=== PATIENT | female | born 1985 | race Caucasian/White ===

== ENCOUNTER 2019-11-20 12:51 | Outpatient (CLI) | payer OTHER, SELFPAY ==
--- NOTE | ~2019-11-20 | US_ITS ---
EXAMINATION: US OB <=14 wk fetus w TV DATE: 11/20/2019 13:30 INDICATION: Threatened miscarriage. TECHNIQUE: Real-time transabdominal and transvaginal pelvic ultrasound was performed. COMPARISON: None. FINDINGS: TRANSABDOMINAL ULTRASOUND: The uterus measures 7.8 x 5.6 x 5.6 cm. TRANSVAGINAL ULTRASOUND: There is an intrauterine gestational sac. A yolk sac is identified. The fet al crown rump length measures 9 mm, which correlates with an estimated gestational age of 6 weeks and 6 day(s) (+/-) 4 day(s). heart motion is identified measuring 141 beats per minute (bpm) by M- mode Doppler. There is a small subchorionic hematoma. The right ovary is not visualized. The left ova ry measures 3.0 x 3.0 x 2.4 cm. There is a 2.7 cm cyst in left ovary, likely a corpus luteum cyst. Th ere is no free fluid in the pelvis. IMPRESSION: 1. Single living intrauterine gestation with estimated date of delivery of 07/09/2020. 2. Small subchorionic hematoma. Reviewed, dictated and finalized at location A.
== END 2019-11-20 12:52 | disposition home or self-care (01) ==
LOC: ANHIMG 12:56
PROVIDERS: PCP Nurse Practitioner Family; Visit Provider Obstetrics & Gynecology
DX: O20.0 Threatened abortion (principal); Z3A.00 Weeks of gestation of pregnancy not specified
CPT/HCPCS: 76801; 76817

== ENCOUNTER 2019-11-29 10:00 | Outpatient (CLI) | payer OTHER, SELFPAY ==
--- NOTE | ~2019-11-29 | US_ITS ---
EXAMINATION: US OB <= 14 weeks fetus EXAM DATE: 11/29/2019 10:42 INDICATION: Follow-up subchorionic hemorrhage. Follow up left cyst. First trimester. TECHNIQUE: Pelvic obstetrical transabdominal sonogram was performed by a technologist. There are mu ltiple grayscale and Doppler images available for interpretation. Comparison is made to prior examina tion from 11/20/2019. FINDINGS: Uterus measures 9.8 x 6.9 x 5.2 cm. There is intrauterine gestation sac. pole with heart rate confirmed at 168 beats per minute. The 1.8 cm crown-rump length corresponds to estimated gestational age by ultrasound of 8 weeks 2 days, estimated date of confinement 07/08. Yolk sac is id entified. Small subchorionic hemorrhage identified measuring 7 x 7 x 5 mm. Left ovary morphologica lly normal, right not identified. IMPRESSION: Small subchorionic hemorrhage. Reviewed, dictated and finalized at location A.
== END 2019-11-29 10:01 | disposition home or self-care (01) ==
PROVIDERS: PCP Nurse Practitioner Family; Visit Provider Obstetrics & Gynecology
DX: Z34.90 Encounter for supervision of normal pregnancy, unspecified, unspecified trimester (principal); O36.8911 Maternal care for other specified fetal problems, first trimester, fetus 1
CPT/HCPCS: 76801

== ENCOUNTER 2019-12-18 12:29 | Outpatient (CLI) | payer OTHER, SELFPAY ==
--- NOTE | ~2019-12-18 | US_ITS ---
EXAMINATION: US OB <= 14 weeks fetus DATE: 12/18/2019 12:56 INDICATION: Subchorionic hematoma follow-up during first trimester TECHNIQUE: Real-time pelvic transabdominal and transvaginal ultrasound was performed. COMPARISON: 11/29/2019 FINDINGS: The uterus measures 11.1 x 8.3 x 8.6 cm. There is an intrauterine gestational sac. The pre viously described subchorionic hematoma has increased in size and now measures approximately 3.9 x 4. 5 x 1.2 cm. A yolk sac is identified. heart motion is identified measuring 157 beats per minute (bpm) by M-mode Doppler. The crown rump length measures 3.6 cm , which correlates with an nolan mated gestational age of 10 weeks and 4 day(s) (+/-) 7 day(s). The ovaries are not visualized however no adnexal abnormality is seen. There is no free fluid in the pelvis. IMPRESSION: 1. Interval enlargement of the previously described subchorionic hematoma. 2. Live intrauterine . Reviewed, dictated and finalized at location A.
== END 2019-12-18 12:30 | disposition home or self-care (01) ==
PROVIDERS: PCP Nurse Practitioner Family; Visit Provider Obstetrics & Gynecology
DX: O43.899 Other placental disorders, unspecified trimester (principal); Z3A.00 Weeks of gestation of pregnancy not specified
CPT/HCPCS: 76801

== ENCOUNTER 2020-01-18 12:46 | Outpatient (CLI) | payer OTHER, SELFPAY ==
--- NOTE | ~2020-01-18 | US_ITS ---
EXAMINATION: US OB follow up DATE: 01/18/2020 13:30 INDICATION: Subchorionic hematoma during second trimester TECHNIQUE: Real-time ultrasound of the pelvis was performed utilizing both transabdominal and transva ginal probe.. The interpreting radiologist was not present for the study. COMPARISON: 12/18/2019 and 11/29/2019 FINDINGS: There is a single living fetus in vertex presentation. There is an anterior placenta which appears to extend to the level of the cervical os. Margin of the placenta is however difficult to definitively identify 1. AP and retractions in the lower uterus most prominent along the posterior wall. hea rt rate is 149 beats per minute (bpm). The amniotic fluid index limb is subjectively normal. The following biometric data were obtained: BPD: 3.0 cm -> 15 weeks 4 days Head circumference: 11.8 cm -> 15 weeks 6 days Abdominal circumference: 11.0 cm -> 16 weeks 6 days Femur length: 1.7 cm -> 15 weeks 1 days These measurements are concordant. Head circumference to abdominal circumference ratio: 1.07 (normal range 1.06-1.35). Estimated weight: 141 g (+/-) 21 g. or 5 oz. (+/-) 1 oz. IMPRESSION: 1. Single living fetus in vertex presentation with heart rate of 149 bpm. 2. Suggestion of placenta previa however evaluation of the caudal margins limited by appears to be a contraction at the lower uterine segment. Consider follow-up transvaginal imaging for more definitive determination. Prior subchorionic hematoma appears to have resolved. 3. Estimated weight is 85th percentile by Hadlock criteria when 07/09/2020 is used as the estima sravan date of delivery (JERRY). Please correlate with clinical information or earlier ultrasounds for mos t accurate JERRY. Reviewed, dictated and finalized at location A. IMPRESSION: 1. Single living fetus in vertex presentation with heart rate of 149 bpm. 2. Suggestion of placenta previa however evaluation of the caudal margins limit ed by appears to be a contraction at the lower uterine segment. Consider follow -up transvaginal imaging for more definitive determination. Prior subchorionic hematoma appears to have resolved. 3. Estimated weight is 85th percentile by Hadlock criteria when 07/09/2020 is used as the estimated date of delivery (JERRY). Please correlate with clinica l information or earlier ultrasounds for most accurate JERRY.
== END 2020-01-18 12:47 | disposition home or self-care (01) ==
LOC: ANHIMG 12:50
PROVIDERS: PCP Nurse Practitioner Family; Visit Provider Obstetrics & Gynecology
DX: O41.8X99 Other specified disorders of amniotic fluid and membranes, unspecified trimester, other fetus (principal); Z3A.00 Weeks of gestation of pregnancy not specified
CPT/HCPCS: 76816

== ENCOUNTER 2020-06-18 13:35 | Outpatient (CLI) | payer OTHER, SELFPAY ==
--- NOTE | ~2020-06-18 | US_ITS ---
EXAMINATION: US OB follow up w BPP EXAM DATE: 06/18/2020 14:11 INDICATION: History of delivery of macrosomal . 3rd trimester. TECHNIQUE: Pelvic obstetrical transabdominal sonogram was performed by a technologist. There are mu ltiple grayscale and Doppler images available for interpretation. Comparison is made to prior examina tion from 01/18/2020. FINDINGS: There is a single fetus identified in vertex presentation with a heart rate of 143 beats p er minute. The placenta is located in the anterior position. There is no sonographic evidence of ret roplacental hemorrhage identified. The amniotic fluid index is 15.9 centimeters, which is normal. Niurka cental margin to internal cervical os distance is 6 cm. BIOMETRIC DATA: Biparietal diameter (BPD): 8.6cm ----------------> 34 weeks 5 days. Head circumference (HC): 31.2 cm ----------------> 35 weeks 0 days. Abdominal circumference (AC): 33.3 cm ----------> 37 weeks 1 day. Femur length (FL): 6.8 cm --------------------------> 35 weeks 0 days. These measurements are concordant. HC/AC ratio is 0.94 (The 5th -- 95th percentile range is 0.93-1.11. Estimated weight is 2852 g +/- 428 g. This is the 32nd percentile when the currently reported clinical gestation age 37 weeks 0 days, clinical estimated date of delivery (JERRY-OPE) 07/09/2020 is us ed. estimated gestational age based on measurements from this exam is 35 weeks 3 days, with an estimated date of delivery (JERRY-AUA) 07/20. BIOPHYSICAL PROFILE (performed by the technologist) breathing (30 sec sustained breathing in 30 minutes): 2 out of 2 movement (3 gross body movements in 30 minutes): 2 out of 2 tone (one episode of enspjbw-nugvzyenv-lujjprc limb movement): 2 out of 2 Amniotic fluid pocket (2 cm): 2 out of 2 Total score: 8 out of 8 IMPRESSION: 1. Single fetus in vertex presentation with heart rate 143 beats per minute. 2. Estimated weight of 2852 grams, 32nd percentile using the currently reported clinical gesta tion age of 37 weeks 0 days, JERRY(OPE) 07/09. 3. Normal biophysical profile score 8/8. 4. Normal KAYLYN 16 cm. Reviewed, dictated and finalized at location A. FLARING MACHINE OPERATOR IMPRESSION: 1. Single fetus in vertex presentation with heart rate 143 beats per minute. 2. Estimated weight of 2852 grams, 32nd percentile using the currently r eported clinical gestation age of 37 weeks 0 days, JERRY(OPE) 07/09. 3. Normal biophysical profile score 8/8. 4. Normal KAYLYN 16 cm.
== END 2020-06-18 13:36 ==
PROVIDERS: Visit Provider Obstetrics & Gynecology
DX: Z87.59 Personal history of other complications of pregnancy, childbirth and the puerperium (principal)
CPT/HCPCS: 76816; 76819

== ENCOUNTER 2020-07-01 05:07 | Inpatient (IN) | payer OTHER, SELFPAY ==
--- NOTE | 2020-06-30 07:21 | PM.IMHP ---
H&P: HPI History of Present Illness Date/Time: 07/01/20 07:21 induction of labor Chief complaint: Pre-admit Narrative: Marilu Gilman is a 34 year old female, , presents for ADDY at 39w.For elective induction of labor H/o RPL, MTHFR, abnormal progesterone, delivery of macrosomal infant, anxiety, smoking Review of Systems Review of Systems: All systems reviewed & are unremarkable except as noted in HPI and below Constitutional: Constitutional: Reports no additional constitutional complaints Eyes: Eyes: Reports no additional eye complaints ENT: Reports system reviewed and no additional complaints, except as documented Cardiovascular: Cardiovascular: Reports no additional cardiovascular complaints Respiratory: Respiratory: Reports no additional respiratory complaints Gastrointestinal: Gastrointestinal: Reports no additional gastrointestinal complaints Genitourinary: Genitourinary: Reports no additional female genitourinary complaints Musculoskeletal: Musculoskeletal: Reports no additional musculoskeletal complaints Integumentary/Breasts: Skin/Breast: Reports system reviewed and no additional complaints, except as docu Neurologic: Reports system reviewed and no additional complaints, except as documented Psychiatric: Psychiatric: Reports no additional psychiatric complaints [facility] Past Medical History Medical History Anemia Depression CHARAN (generalized anxiety disorder) History of macrosomia in in prior , currently MTHFR gene mutation Recurrent loss Smoker Surgical History Surgical History (Updated 06/30/20 @ 07:32 by Logan Yoon MD) History of bilateral breast implants 2013 Family History Family History Father Coronary stent patent Mother Coronary stent patent Social History Social History (Updated 06/30/20 @ 07:38 by Logan Yoon MD) Smoking packs per day: 1 Smoking cigarettes per day: 20.0 Years smoked: 12 Smoking pack-years: 12.00 Smoking status: Current every day smoker Alcohol intake: never Substance use: current Substance use type: marijuana Living arrangements: with family Occupation/Education: unemployed Additional occupation/education comments: 2yr college Gender identity (if verbalized by the patient): Female Sexual Orientation (if Verbalized by the Patient): Straight or Heterosexual Spiritual care concerns: No Agree to blood products: Yes Meds Home Medications and Allergies Home Medications Medication Instructions Recorded Confirmed Type aspirin [Aspirin Low Dose] 81 mg PO BID 06/12/20 06/12/20 History cyanocobalamin (vitamin B-12) 1,000 mcg SUBCUT MONTHLY 06/12/20 06/12/20 History famotidine [Pepcid] 20 mg PO BID 06/12/20 06/12/20 History folic acid 4 mg PO DAILY 06/12/20 06/12/20 History linaclotide [Linzess] 145 mcg PO DAILY 06/12/20 06/12/20 History prenat.vits,dennise,hwg-yxcz-sxacd 1 tablet PO DAILY 06/12/20 06/12/20 History [ #2] progesterone micronized 200 mg PO BID 06/12/20 06/12/20 History Allergies Allergy/AdvReac Type Severity Reaction Status Date / Time Penicillins Allergy Severe Anaphylactic Unverified 06/12/20 14:44 Shock Exam Const: General: comfortable and no acute distress HENMT: Head: normal to inspection Ears: hearing grossly normal bilaterally Face and sinus: normal facial exam Eyes: General: appearance normal, both eyes and all related structures Neck: Neck: normal visual inspection and full ROM Thyroid: thyroid normal Lymphatic: no lymphadenopathy noted Chest: Chest palpation & inspection: normal inspection of the chest Breast/axilla inspection: normal inspection of the breasts Resp: Effort & Inspection: normal respiratory effort Auscultation: clear to auscultation bilaterally Cardio: Rate: regular rate Rhythm: regular rhythm GI: GI Palp: Yes Soft to palpation Percussi
--- NOTE | 2020-06-30 07:45 | WPDHPUPDATE1 ---
History and Physical Update Update Date/Time: 07/01/20 07:45 History and Physical has been reviewed, including an updated exam of the patient. There are NO changes in the patient's condition. Risks, benefits, and alternatives have been discussed and questions answered. Patient agrees to proceed with procedure. 34 y/o F, , presents for ADDY at 39weeks for elective induction of lbor with pitocin. H/o RPL, MTHFR, abnormal progesterone, delivery of macrosomal , anxiety, smoking
--- NOTE | 2020-06-30 07:47 | WPDOBADMIT ---
Obstetrics - Admit Note Admission Note: record reviewed. No pertinent additions to the history and/or any subsequent changes in the physical findings that are not consistent with the expected course of the were found. Additions to the history and/or subsequent changes in the physical findings follow. None. 34 y/o F, , presents for ADDY at 39weeks for elective induction of labor with pitocin. H/o RPL, MTHFR, abnormal progesterone, delivery of macrosomal , anxiety, smoking
[2020-07-01] VITALS (143 sets, daily range): BP systolic 96–152; BP diastolic 44–109; PULSE 54–130; RESP 16–18; TEMP 36.4–36.8; O2SAT 78–100; BMI 27.2
--- OUTSIDE RECORDS SUMMARY | 2020-07-01 05:13 | XMS_ITS ---
:1985 Author Care Team Providers Name Role Phone LAURI ROBERTS MD Major Assembly Inspector [phone] Allergies Code Code System Name Reaction Severity Status Onset Penicillins Anaphylaxis Severe Active ? ? Hives Moderate to Active ? Severe Medications Name Status Start Date Stop Date ? ? alprazolam 0.5 mg tablet Completed ? 020 Aspirin Low Dose 81 mg tablet,delayed release Active ? Not available Take 2 tablets every day by oral route. Calcium 600 with Vitamin D3 600 mg (1,500 mg)-400 unit capsule C ompleted ? 03/06/2020 Take 1 capsule twice a day by oral route. Calcium with Vitamin D 600 mg (1,500 mg)-400 unit tablet Active ? Not available Take 1 tablet every day by oral route. clindamycin HCl 300 mg capsule Completed ? 0 03/06/2020 Condoms-Justen Lubricated Active ? Not avai lable Take 1 device by miscell. route. cyanocobalamin (vit B-12) 1,000 mcg/mL injection solution Active ? Not available Inject 1 mL every month by subcutaneous route. Cytotec 100 mcg tablet Completed ? 0 Take 1 tablet 4 times a day by oral route for 5 days. escitalopram 20 mg tablet Completed ? 2019 famotidine 20 mg tablet Active ? Not avai lable folic acid 1 mg tablet Active ? Not avail able Linzess 145 mcg capsule Active ? Not avai lable melatonin 10 mg tablet Completed ? 0 Take 1 tablet every day by oral route. multivitamin tablet Active ? Not availabl e
--- OUTSIDE RECORDS SUMMARY | 2020-07-01 05:13 | XMS_ITS | Encounter Summary ---
:1985 Author Care Team Providers Name Role Phone Logan Yoon MD Rotary Cutter Operator [phone] Reason for Visit ob routine visit Assessment and Plan Assessment Note DEVYN Barnes, PA-S 1. Routine care Routine care at 31w3d . + movement. Denies LOF, contractions, bleeding. Reassuring fundal height and F HT of 154. Following with MFM for serial US, last 05/06/2020 normal KAYLYN, EFW 13%, no e vidence of previa. B12 injection and flu shot at next visit. RTC in 2 weeks. ? urinalysis, dipstick 2. Recurrent miscarriage Serial US. 3. Heterozygous methylenetetrahy drofolate reductase mutation Continue taking aspirin, proge sterone, folic acid, and monthly B12. Last B12 on 04/25. 4. Smoker Down to 5 cigarettes per day. Advised complete cessation. Reassess at next visit. 5. History of delivery of macros omal infant Follow with MFM for serial US. Last 05/06 with EFW 13%. 6. Abnormal glucose tolerance te st Abnormal 1 hour, still needs t o complete 3 hour GTT. 7. Gastroesophageal reflux disea se without esophagitis Continue famotidine as prescri bed. Try banana therapy. Advised to stay away from spicy, acidic, and greasy foods. Do not eat within 2 hours of going to bed. Smoking cessation. Discussion Note: None recorded.Patient educational handouts: No information available. Plan of Care Reminders Provider Appointments on or around
--- OUTSIDE RECORDS SUMMARY | 2020-07-01 05:13 | XMS_ITS | Encounter Summary ---
:1985 Author Care Team Providers Name Role Phone Logan Yoon MD Manager Of Exhibitions And Collections [phone] Reason for Visit ob routine visit Assessment and Plan 1. Routine care ? urinalysis, dipstick 2. Heterozygous methylenetetrahy drofolate reductase mutation MTHFR ? cyanocobalamin (vit B-12) 1,000 mcg/mL injection solution 3. Generalized anxiety disorder ? anxiety disorder: care ins tructions 4. History of delivery of macros omal infant serial US Discussion Note: None recorded. Plan of Care Reminders Provider Appointments on or around Candace Yoon, 15 07/25/2020 Lab Urinalysis, 04/25/2020 In-Of fice Order Dipstick Referral None ? ? recorded. Procedures None ? ? recorded. Surgeries None ? ? recorded. Imaging None ? ? recorded. Medications Name Start Date ? ? Aspirin Low Dose 81 mg tablet,delayed release ? Take 2 tablets every day by oral route. Calcium with Vitamin D 600 mg (1,500 mg)-400 unit tabl et ? Take 1 tablet every day by oral route. Condoms-Justen Lubricated ? Take 1 device by miscell. route. cyanocobalamin (vit B-12) 1,000 mcg/mL injection solut ion ?
--- OUTSIDE RECORDS SUMMARY | 2020-07-01 05:13 | XMS_ITS ---
:1985 Author Care Team Providers Name Role Phone SHERIN MONTE [facility] Primary Care Provider [phone] Allergies Code Code System Name Reaction Severity Status Onset Penicillins Hives Moderate Active ? Medications Name Status Start Date Stop Date ? ? alprazolam 0.5 mg tablet Active ? Not emily ilable 1 tab tid prn escitalopram 20 mg tablet Completed ? 2018 1 tab po daily Prometrium 200 mg capsule Active ? Not av ailable Take 1 capsule twice a day by oral route for 12 days. sertraline 50 mg tablet Active ? Not avai lable TAKE 1 TABLET BY MOUTH DAILY zolpidem 10 mg tablet Active ? Not availa ble 1/2 tab po nightly prn Problems Name Status Onset Date Source ? Anxiety Disorder Active 03/03/2019 ? Procedures Date Name Performed by ? ? Insertion of Bilateral Breast Prostheses Information not available Notes: 2013-February, above muscle and th rough nipple. [place] Results Lab Results None recorded. Past Encounters 03/03/2019 Mixed Anxiety and Depressive Disorder; I nsomnia; Anemia Screening; Diabetes Mellitus Screening; Thyroid Disorder Screening; Hyperlipidemia Screening Sherin Monte INFORMATICS EDUCATOR: [address] [place] [address], Ph. Social History Tobacco Smoking Status Heavy Tobacco Smoker (1 PPD) Vaccine List None recorded. Plan of Care Reminders Provider
--- OUTSIDE RECORDS SUMMARY | 2020-07-01 05:13 | XMS_ITS | Encounter Summary ---
:1985 Author Care Team Providers Name Role Phone Logan Yoon MD Block Operator [phone] Reason for Visit ob routine visit Assessment and Plan 1. Routine care 34 y/o F, , presents fo r ADDY at 35w3d ? bacterial vaginosis + vagi nitis panel, vaginal - Please send copy of results via fax to [facility] at [phone] ? HSV (1+2) DNA, qual, PCR, unspecified specimen - Please send copy of results via fax to [facility] at [phone] ? culture, vaginal/rectal, s treptococcus group B - Please send copy of results via fax to [facility] at [phone] 2. Heterozygous methylenetetrahy drofolate reductase mutation 3. History of delivery of macros omal serial US ? US, obstetric, 3rd trimest er ? US, obstetric, biophysical profile ? non-stress test 4. Recurrent miscarriage 5. Generalized anxiety disorder ? anxiety disorder: care ins tructions 6. Viral syndrome ? COVID-19 RNA (SARS-CoV-2), QL, dredge pump operator-PCR, respiratory specimen Discussion Note: None recorded. Plan of Care Reminders Provider Appointments 15 on or around Logan 07/25/2020 MD Car Lab COVID-19 RNA 06/13/2020 Jerry golden (SARS-CoV-2), QL, Hospital dredge pump operator-PCR, Respiratory
--- OUTSIDE RECORDS SUMMARY | 2020-07-01 05:13 | XMS_ITS | Encounter Summary ---
:1985 Author Care Team Providers Name Role Phone Logan Yoon MD Cd Reactor Operator [phone] Reason for Visit ob routine visit Assessment and Plan 1. Routine care 34 y/o F, , presents fo r ADDY at 38w3d. Induction scheduled for 07/01/20. ? urinalysis, dipstick 2. Family planning surveillance ? multivitamin tablet ? Calcium with Vitamin D 600 mg (1,500 mg)-400 unit tablet ? Slynd 4 mg (28) tablet ? Condoms-Justen Lubricated Discussion Note: None recorded.Patient educational handouts: No information available. Plan of Care Reminders Provider Appointments on or around Ga charlene Yoon, 15 07/25/2020 Lab Urinalysis, 06/27/2020 In-Of fice Order Dipstick Referral None ? [...] route. cyanocobalamin (vit B-12) 1,000 mcg/mL injection win
--- OUTSIDE RECORDS SUMMARY | 2020-07-01 05:13 | XMS_ITS | Encounter Summary ---
:1985 Author Care Team Providers Name Role Phone Logna Yoon MD Walking Dragline Operator [phone] Reason for Visit ob routine visit Assessment and Plan 1. Routine care ? Boostrix Tdap 2.5 Lf unit- 8 mcg-5 Lf/0.5 mL intramuscular syringe ? US, obstetric, 3rd trimest er ? counting your baby's kicks : care instructions ? kick counts ? CBC - In addition to our o ffice, please fax results to [facility] at [phone] ? treponema pallidum screen, serum, reflex confirmation - In addition to our office, please fax results to [facility] at [phone] ? HBsAg (hepatitis B surface Ag), EIA, serum - In addition to our office, please fax results to [facility] at [phone] ? HIV 1+2 AB + HIV 1 p24 Ag, qualitative immunoassay, serum - In addition to our office, please fax results to [facility] at [phone] ? urinalysis, dipstick 2. Heterozygous methylenetetrahy drofolate reductase mutation MTHFR 3. History of delivery of macros omal infant serial US 4. Smoker risk for miscarriage, PIH, FGR 5. Generalized anxiety disorder ? anxiety disorder: care ins tructions 6. Recurrent miscarriage 7. screening ? glucose tolerance test, po st-50G, 1-hour -
--- OUTSIDE RECORDS SUMMARY | 2020-07-01 05:13 | XMS_ITS | Encounter Summary ---
:1985 Author Care Team Providers Name Role Phone Logan Yoon MD Paint Prepper [phone] Reason for Visit ob routine visit CC No itching, burning or discharge, No spotting, cramping, fluid leakage. Pt would like flu vaccine today. Assessment and Plan 1. Routine care Routine care at 33w3d . Denies LOF, contractions, bleeding. + movement. Reassuring fundal height and F HT of 145. Following with MFM for serial US, last 05/06/2020 normal KAYLYN, EFW 13%, no e vidence of previa. She has not scheduled repeat imaging. Orders provided for FGR and advised to scheduled shane. B12 administered and flu vaccine given. RTC in [address] Yoon. ? urinalysis, dipstick 2. growth restriction Last US 05/06 with EFW 13%. MFM for IUGR testing. Discussed with Dr. Yoon. ? US, obstetric, biophysical profile + non-stress test - efw ? US, doppler, middle cerebral artery velocimetry ? US, obstetric, 3rd trimest er - efw 3. Heterozygous methylenetetrahy drofolate reductase mutation Continue taking aspirin, proge sterone, folic acid, and monthly B12. B12 given today. ? cyanocobalamin (vit B-12) 1,000 mcg/mL injection solution 4. Abnormal glucose tolerance te st Abnormal 1 hour, did not compl ete 3 hour GTT. HgbA1c wnl. ? HbA1c (hemoglobin A1c), bl ood 5. Recurrent miscarriage Serial US. 6. Smoker Down to 5 cigarettes per day. Advised complete cessation. Reassess at next visit.
--- OUTSIDE RECORDS SUMMARY | 2020-07-01 05:13 | XMS_ITS | Encounter Summary ---
:1985 Author Care Team Providers Name Role Phone Logan Yoon MD Field Service Analyst [phone] Reason for Visit ob routine visit Assessment and Plan 1. Routine care 34 y/o F, , presents fo r ADDY at 37w3d ? urinalysis, dipstick 2. Heterozygous methylenetetrahy drofolate reductase mutation ? cyanocobalamin (vit B-12) 1,000 mcg/mL injection solution 3. Generalized anxiety disorder ? anxiety disorder: care ins tructions 4. History of delivery of macros omal serial US 5. Recurrent miscarriage Discussion Note: None recorded. Plan of Care Reminders Provider Appointments on or around Candace Yoon, 15 07/25/2020 Lab Urinalysis, 06/20/2020 In-Of fice Order Dipstick Referral None ? [...]
--- OUTSIDE RECORDS SUMMARY | 2020-07-01 05:13 | XMS_ITS | Encounter Summary ---
:1985 Author Care Team Providers Name Role Phone Logan Yoon MD Nutrition Specialist [phone] Reason for Visit ob routine visit Assessment and Plan 1. Routine care 34 y/o F, , presents fo r ADDY at 35w3d ? urinalysis, dipstick ? induction of labor (PROC) 2. Heterozygous methylenetetrahy drofolate reductase mutation 3. Generalized anxiety disorder ? anxiety disorder: care ins tructions 4. Recurrent miscarriage Discussion Note: None recorded. Plan of Care Reminders Provider Appointments on or around Candace Yoon, 15 07/25/2020 Lab Urinalysis, 06/06/2020 In-Of fice Order Dipstick Referral None ? ? recorded. Procedures Induction of 06/06/2020 [facility] Labor (PROC) [facility] Surgeries None ? ? recorded. Imaging None [...] B-12) 1,000 mcg/mL injection solut ion ? Inject 1 mL every month by subcutaneous route.
[2020-07-01 05:42] LABS: Basophils Absolute Auto 0.1 K/mm3 (0.0-0.1); Basophils Percent Auto 0.4 % (0.2-1.2); Eosinophils Absolute Auto 0.2 K/mm3 (0-0.3); Eosinophils Percent Auto 1.3 % (0-4.4); Hemoglobin 12.4 g/dL (12.0-15.0); Immature Granulocyte Absolute 0.08 K/mm3 (0.00-0.031); Immature Granulocyte Percent A 0.6 % (0-0.5); Lymphocytes Absolute Auto 3.34 K/mm3 (0.9-3.2); Lymphocytes Percent Auto 24.1 % (18.3-44.2); Mean Corpuscular HGB Conc 34.4 g/dl (32-36); Mean Corpuscular Hemoglobin 33.1 pg (26-34); Mean Platelet Volume 10.3 fl (7.4-10.4); Monocytes Percent Auto 6.9 % (2.6-8.5); Neutrophils Absolute Auto 9.3 K/mm3 (1.3-6.7); Neutrophils Percent Auto 66.7 % (45.5-73.1); Platelet Count Result 342 k/mm3 (150-375); Red Blood Count 3.75 M/mm3 (4.2-5.4); Red Cell Distribution Width 13.3 % (11.5-14.5); White Blood Count 13.9 K/mm3 (4.5-10.0)
--- NOTE | 2020-07-01 05:43 | LDADM ---
This patient, Marilu Gilman, was admitted to Labor/Delivery/Recovery 106 on 07/01/20 at 05:07. Plans for labor, pain management and were discussed with patient. Patient/family oriented to hospital policies and general routines including ID bracelet, bed and alarms, visiting hours, pain management, procedures, bathroom and other care routines, personal items, smoking policy, room service/diet and guest tray routines, security routines, and visiting hours. Patient/Family are encouraged to report perceived risks to care and to ask questions if they do not understand what they are told or what they should do. See OBIX for further documentation.
[2020-07-01 05:56] LABS: Amphetamine Screen Urine Negative (Negative); Barbiturate Screen Urine Negative (Negative); Benzodiazepines Screen Urine Negative (Negative); Cannabinoid Screen Urine Positive (Negative); Cocaine Screen Urine Negative (Negative); Methadone Screen Urine Negative (Negative); Opiate Screen Urine Negative (Negative); Phencyclidine Screen Urine Negative (Negative)
[2020-07-01] MEDS: LACTATED RINGERS 1,000 ML 125 ML IV CONT ×2 (06:23→19:15)
[2020-07-01] MEDS: OXYTOCIN 30 UNITS/NS 500 ML 30 UNITS/500 ML BAG IV CONT (06:25)
[2020-07-01 07:02] LABS: Rapid Plasma Reagin Non-Reactive (NonReactive)
--- NOTE | 2020-07-01 11:07 | WPDANESEPPF ---
Anes - Initial Pre Proc Eval Procedure: labor epidural Date/Time: 07/01/20 11:07 Surgeon: Logan Yoon MD Pre Op Diagnosis: labor pain Pre Op Diagnosis: Induction of Labor Patient Data Age: 34 Gender: F Height: 1.7 m Weight: 79 kg Last Vital Signs Temp 36.4 C L 07/01/20 11:04 Pulse 64 07/01/20 11:01 Resp 16 07/01/20 11:04 BP 117/80 07/01/20 11:01 Allergies Allergy/AdvReac Type Severity Reaction Status Date / Time Penicillins Allergy Severe Anaphylactic Verified 07/01/20 06:31 Shock Home Medications Medication Instructions Recorded Confirmed Type aspirin [Aspirin Low Dose] 81 mg PO BID 06/12/20 06/12/20 History cyanocobalamin (vitamin B-12) 1,000 mcg SUBCUT MONTHLY 06/12/20 07/01/20 History famotidine [Pepcid] 20 mg PO BID 06/12/20 06/12/20 History folic acid 4 mg PO DAILY 06/12/20 06/12/20 History linaclotide [Linzess] 145 mcg PO DAILY 06/12/20 06/12/20 History prenat.vits,dennise,gwb-etwt-blleh 1 tablet PO DAILY 06/12/20 06/12/20 History [ #2] progesterone micronized 200 mg PO BID 06/12/20 06/12/20 History Laboratory Tests 07/01/20 07/01/20 07/01/20 05:33 05:33 05:33 WBC 13.9 K/mm3 H K/mm3 (4.5-10.0) RBC 3.75 M/mm3 L M/mm3 (4.2-5.4) Hgb 12.4 g/dL g/dL (12.0-15.0) Hct 36.0 % L % (37.0-47.0) MCV 96.0 fl fl (80-100) MCH 33.1 pg pg (26-34) MCHC 34.4 g/dl g/dl (32-36) RDW 13.3 % % (11.5-14.5) Plt Count 342 k/mm3 k/mm3 (150-375) MPV 10.3 fl fl (7.4-10.4) Immature Gran % (Auto) 0.6 % H % (0-0.5) Neut % (Auto) 66.7 % % (45.5-73.1) Lymph % (Auto) 24.1 % % (18.3-44.2) [place] % (Auto) 6.9 % % (2.6-8.5) Eos % (Auto) 1.3 % % (0-4.4) Baso % (Auto) 0.4 % % (0.2-1.2) Lymph # (Auto) 3.34 K/mm3 H K/mm3 (0.9-3.2) [place] # (Auto) 1.0 K/mm3 H K/mm3 (0.1-0.6) Eos # (Auto) 0.2 K/mm3 K/mm3 (0-0.3) Baso # (Auto) 0.1 K/mm3 K/mm3 (0.0-0.1) Abs Immat Gran (auto) 0.08 K/mm3 H K/mm3 (0.00-0.031) Absolute Neuts (auto) 9.3 K/mm3 H K/mm3 (1.3-6.7) Absolute Nucleated RBC 0.0 K/mm3 K/mm3 (0.0-0.012) Nucleated RBC % 0.0 % % (0.0-0.2) Urine Opiates Screen Urine Methadone Screen Ur Barbiturates Screen Ur Phencyclidine Scrn Ur Amphetamine Screen U Benzodiazepines Scrn Urine Cocaine Screen U Cannabinoids Screen RPR Non-reactive (NonReactive) Blood Type O Positive Antibody Screen Negative 07/01/20 05:33 WBC RBC Hgb Hct MCV MCH MCHC RDW Plt Count MPV Immature Gran % (Auto) Neut % (Auto) Lymph % (Auto) [place] % (Auto) Eos % (Auto) Baso % (Auto) Lymph # (Auto) [place] # (Auto) Eos # (Auto) Baso # (Auto) Abs Immat Gran (auto) Absolute Neuts (auto) Absolute Nucleated RBC Nucleated RBC % Urine Opiates Screen Negative (Negative) Urine Methadone Screen Negative (Negative) Ur Barbiturates Screen Negative (Negative) Ur Phencyclidine Scrn Negative (Negative) Ur Amphetamine Screen Negative (Negative) U Benzodiazepines Scrn Negative (Negative) Urine Cocaine Screen Negative (Negative) U Cannabinoids Screen Positive A (Negative) RPR Blood Type Antibody Screen Patient hx anesthesia problems: none Family hx anesthesia problems: none PMFSH Past Medical History Medical History Anemia Depression CHARAN (generalized anxiety disorder) History of macrosomia in in prior , currently MTHFR gene mutation Recurrent loss Smoker Surgical History
--- NOTE | 2020-07-01 14:06 | PM.OBPNLAB ---
Pain Control Date/time seen: 07/01/20 14:06 Pain control: tolerating well Pelvic Exam Dilation (cm): 2 Effacement (%): 50 station: -2 Amniotic membrane status: Intact Contractions Monitor mode: External Contraction frequency: 2 Contraction duration: 50 Contraction pattern: Regular Contraction phase: Contraction Contraction intensity: Moderate Status status: Category l Assessment and Plan Pitocin rate (mU/min): 20 Assessment: induction ongoing Plan: continuous present management
--- NOTE | 2020-07-01 16:57 | PM.OBPNLAB ---
Pain Control Date/time seen: 07/01/20 16:57 Pain control: tolerating well and epidural Pelvic Exam Dilation (cm): 3 Effacement (%): 50 station: -2 Amniotic membrane status: Intact Contractions Monitor mode: External Contraction frequency: 2 Contraction pattern: Regular Contraction phase: Contraction Contraction intensity: Moderate Status status: Category l Assessment and Plan Pitocin rate (mU/min): 20 Assessment: active labor and induction ongoing Plan: continuous present management Comments: epidural
--- NOTE | 2020-07-01 17:22 | PM.OBPNLAB ---
Pain Control Date/time seen: 07/01/20 17:22 Pain control: tolerating well and epidural Pelvic Exam Dilation (cm): 4 Effacement (%): 50 station: -2 Amniotic membrane status: Ruptured (arom clear af) Contractions Monitor mode: External Contraction frequency: 2 Contraction pattern: Regular Contraction phase: Contraction Contraction intensity: Moderate Status status: Category l Assessment and Plan Assessment: active labor and induction ongoing Plan: continuous present management
[2020-07-01] MEDS: OXYTOCIN 30 UNITS/NS 500 ML 30 UNITS/500 ML BAG 125 UNITS IV CONT (19:01)
[2020-07-01] MEDS: CARBOPROST TROMETHAMINE 250 MCG/ML AMPUL IM (19:29)
--- NOTE | 2020-07-01 19:44 | PM.OBPNLAB ---
Pain Control Date/time seen: 07/01/20 18:30 Pain control: tolerating well and epidural Pelvic Exam Dilation (cm): 10 Effacement (%): 100 station: +3 Amniotic membrane status: Ruptured (arom clear af) Contractions Monitor mode: External Contraction frequency: 2 Contraction pattern: Regular Contraction phase: Contraction Contraction intensity: Moderate Status status: Category l Assessment and Plan Assessment: active labor (Completion of stage I) Plan: continuous present management and other (Delivery CHIP)
[2020-07-01] MEDS: LOPERAMIDE HCL 2 MG CAPSULE (19:45)
--- NOTE | 2020-07-01 19:45 | PM.OBPRVD ---
OB - Delivery Note Procedure Delivery date: 07/01/20 Procedure: Normal spontaneous vertex vaginal delivery of viable female infant and placenta events: Labor Induction Intrapartal events: None Induction method: per pitocin protocol Delivery augmentation: rupture of membranes Delivery monitor: external FHT and external uterine Route of delivery: Episiotomy description: None Laceration Description: None Specimen: Yes (Placenta, cord gases, cord blood gases) Estimated blood loss (mL): 250 Anesthesia type: Epidural Disposition: floor Complications: None Baby Date of : 07/01/20 Time of : 18:37 Weeks of gestation at delivery: 39 gender: Female (Minh Sorensen) Weight (pounds): 6 Weight (ounces): 6 presentation: vertex position: Left Occiput Anterior Placenta delivery description: Spontaneous and Normal Configuration cord vessel description: 3 Vessels, Nuchal Cord and Reduced score one minute: 9 score five minutes: 9 Narrative: Normal spontaneous vertex vaginal delivery a viable female infant over an intact perineum normal delivery of anterior shoulder nuchal cord x1 reduced delivered without difficulty placed on maternal abdomen cord clamped and cut nose and throat of the baby were bulb suction there was spontaneous respirations and cry no observed abnormalities of the exam placenta delivery without difficulty uterus contracted well with Pitocin given intravenously. Vagina was examined no cuts tears or lacerations sponge needle and counts correct rectum check normal uterus prolapse cervix at the introitus hemorrhage 1000 cc due to uterine atony uterus evacuated of blood clots ultrasound revealed no retained placenta by bedside and Hemabate 250 micro g given IM with excellent results Baltazar catheter inserted IV fluids given patient tolerated the procedure well in LDR room 106 stable condition
--- NOTE | 2020-07-01 19:52 | PM.OBDSVD ---
DS: Admitting Diagnosis Admitting Diagnosis Admitting Diagnosis: Induction of Labor Term MTHFR mutation Recurrent loss History of macrosomia in previous pregnancies Smoker CHARAN Depression Anemia DS: Discharge Diagnosis Discharge Diagnosis (1) Term delivered: Code(s): O80 - Encounter for full-term uncomplicated delivery Status: Acute (2) hemorrhage: Code(s): O72.1 - Other immediate hemorrhage Status: Acute (3) Elective induction of labor planned: Status: Acute (4) Depression: Code(s): F32.9 - Major depressive disorder, single episode, unspecified Status: Acute (5) History of macrosomia in infant in prior , currently : Code(s): O09.299 - Supervision of with other poor reproductive or obstetric history, unspecified trimester Status: Acute (6) Smoker: Code(s): F17.200 - Nicotine dependence, unspecified, uncomplicated Status: Acute (7) CHARAN (generalized anxiety disorder): Code(s): F41.1 - Generalized anxiety disorder Status: Acute (8) MTHFR gene mutation: Code(s): E72.12 - Methylenetetrahydrofolate reductase deficiency Status: Acute OB - DS: Summary Hospital Course Time spent discussing smoking cessation with patient: 3 to 10 minutes OB Procedures : NST and Ultrasound OB Procedures Intrapartum: Spontaneous Vag Delivery OB Procedures: : Other (Hemabate) Peripartum Data Delivery Method: Natural Vaginal Laceration Description: None Episiotomy description: None complications: uterine atony Wilson 1: Gender: Female ([place] gene) Disposition of : home Status at Discharge Functional status at discharge: independent ambulation Overall status at discharge: patient is back to baseline Time Spent with Patient Time attestation: Total time spent providing and/or coordinating discharge services: Time spent: Less than 30 minutes Exam Const: General: cooperative Nutritional Appearance: average body habitus Orientation/consciousness: patient oriented x3 Limitations: no limitations HENMT: Head: normal to inspection Eyes: General: appearance normal, both eyes and all related structures Neck: Neck: normal visual inspection and full ROM Chest: Chest palpation & inspection: normal inspection of the chest Breast/axilla inspection: normal inspection of the breasts Resp: Effort & Inspection: normal respiratory effort Auscultation: clear to auscultation bilaterally Cardio: Rate: regular rate Rhythm: regular rhythm Heart sounds: S1 normal heart sound present GI: Inspection: normal to inspection Percussion: Yes normal to percussion Auscultation: normal bowel sounds : External Female Exam: normal external appearance Bimanual exam- vagina & uterus: consistency normal, non-tender and other (Uterine prolapse) Back/Spine/Pelvis: Back: no CVA tenderness Skin: General skin exam: normal color and no rashes or lesions noted Neuro: General: patient oriented x3, gait normal, tone normal and moves all extremities Extrem: General: normal to inspection and full ROM Psych: Appearance: grossly normal Mental Status: mental status grossly normal Speech and movement: Normal speech and movement present Affect: normal affect Attitude: cooperative Thought process: Normal thought process present Thought content: Yes Normal thought content present Insight: Good insight present (Psych) Judgement: Good judgement present (Psych) DS: Data Data Completed and Pending Labs on day of discharge: Labs from last 24 hours 07/01/20 07/01/20 07/01/20 05:33 05:33 05:33 WBC RBC Hgb Hct MCV MCH MCHC RDW Plt Count MPV Immature Gran % (Auto) Neut % (Auto) Lymph % (Auto) [place] % (Auto) Eos % (Auto) Baso % (Auto) Lymph # (Auto) [place] # (Auto) Eos # (Aut
[2020-07-01] MEDS: ONDANSETRON INJ 4 MG/2 ML VIAL IV PUSH (20:10)
--- NOTE | 2020-07-01 21:16 | OBPPTRN ---
Patient transferred to post room #281 via wheelchair. Support person present. Oriented to unit, room, information board, rooming in, admission packet and security measures. Patient verbalizes understanding. with patient.
[2020-07-02] MEDS: IBUPROFEN 600 MG TABLET PO ×2 (04:46→12:46)
[2020-07-02 05:26] LABS: Hematocrit 29.1 % (37.0-47.0)
[2020-07-02 07:45] VITALS: BP 107/65; PULSE 66; RESP 16; TEMP 36.9; O2SAT 99
--- NOTE | 2020-07-02 08:51 | PM.OBPNVD ---
OB - PN: Subj Subjective Date/time seen: 07/02/20 08:51 Patient comments: no complaints, pain well controlled, tolerating diet and flatus present Blanket baby status: doing well and bottle feeding well Blanket feeding status: exclusively bottle feeding OB - PN: Obj Data Labs CBC & Chem 7: 07/02/20 04:39 Labs: Laboratory Results - last 24 hr 07/02/20 04:39 Hgb 10.0 L Hct 29.1 L OB - PN A/P Assessment and Plan (1) Term delivered: Code(s): O80 - Encounter for full-term uncomplicated delivery Status: Acute (2) Anemia: Code(s): D64.9 - Anemia, unspecified Status: Acute (3) Status post vaginal delivery: Status: Acute Plan day: 1 Plan: routine care, discharge home (Tonight) and follow up 6 weeks (3 week) Time Spent With Patient Time: Total time spent is greater than 50% in coordination of care (as documented) at patient's floor/unit and/or counseling patient: Time with patient: less than 15 minutes Review of Systems Review of Systems: All systems reviewed & are unremarkable except as noted in HPI and below Exam Const: General: cooperative, healthy appearing, comfortable, no acute distress, alert, awake and Physically active Nutritional Appearance: average body habitus and well nourished Orientation/consciousness: patient oriented x3 Limitations: no limitations HENMT: Head: normal to inspection Ears: hearing grossly normal bilaterally General nose exam: Normal external nose present Face and sinus: normal facial exam Mouth: Yes Normal oral and palatal mucosa present Eyes: General: appearance normal, both eyes and all related structures Neck: Neck: normal visual inspection and full ROM Chest: Chest palpation & inspection: normal inspection of the chest Breast/axilla inspection: normal inspection of the breasts Resp: Effort & Inspection: normal respiratory effort Auscultation: clear to auscultation bilaterally Cardio: Palpation: normal PMI Rate: regular rate Rhythm: regular rhythm GI: Inspection: normal to inspection GI Palp: Yes Soft to palpation Percussion: Yes normal to percussion Auscultation: normal bowel sounds : External Female Exam: normal external appearance Bimanual exam- vagina & uterus: non-tender Back/Spine/Pelvis: Back: no CVA tenderness and back tenderness (EPIDURAL SITE) Skin: General skin exam: normal color and no rashes or lesions noted Neuro: General: patient oriented x3, gait normal, tone normal, moves all extremities, Normal light touch and pain sensation, no meningeal signs, no focal motor deficits and CN's II-XI intact bilaterally Extrem: General: normal to inspection and full ROM Psych: Appearance: grossly normal Mental Status: mental status grossly normal Speech and movement: Normal speech and movement present Affect: normal affect Attitude: cooperative Thought process: Normal thought process present Thought content: Yes Normal thought content present Insight: Good insight present (Psych) Judgement: Good judgement present (Psych)
--- NOTE | 2020-07-02 09:21 | PCCCNOTE ---
Care Coordination. Patient referred to CC for positive UDS for marijuana, but not being tested per RN. Met with pt. and FOB at bedside. Pt. has 2 other children at home about 10 and 13 years old. She reports having all necessary baby care items at home. She plans to breast feed, but will not be using WIC services. She and FOB plan to go home together and she reports her mother lives really close. Her mother is a nurse and will be taking some time off work to help out at home as well. Pt. denies any community resource needs. Spoke with Ramu from [facility] hotline who took patient's situation as information only (Intake ID#[id number]). Pt. and FOB think they may go home later tonight at 24 hours.
--- NOTE | 2020-07-02 11:04 | WPDANLDPN2 ---
Anes-Prog Note L&D Date/Time: 07/02/20 11:04 Comfortable throughout: labor and delivery Neuraxial method: epidural Epidural/Spinal procedure site: clean & non-tender Neuro status: Neuro function grossly intact. Cardiovascular status: normal Respiratory status: normal Airway patency: baseline Mental status: baseline Post-Op hydration status: normal Vital Signs: Last Vital Signs Temp 36.9 C 07/02/20 07:45 Pulse 66 07/02/20 07:45 Resp 16 07/02/20 07:45 BP 107/65 07/02/20 07:45 Pulse Ox 99 07/02/20 07:45 Pain score (VAS): 2 I/O: Intake & Output 07/01/20 07/02/20 07/02/20 23:59 07:59 15:59 Intake Total 500 Output Total 1653 Balance -1153 Post-procedural complaints: none Patient feedback: Patient satisfied with anesthetic care.
[2020-07-03 12:50] VITALS: BP 129/72; PULSE 61; RESP 20; TEMP 37.2; O2SAT 100
== END 2020-07-02 19:30 | disposition home or self-care (01) | DRG 806 ==
LOC: ANHLDR 19:58 → ANHOB2 21:28
PROVIDERS: Admitting Provider Obstetrics & Gynecology; Visit Provider Obstetrics & Gynecology
DX: O99.284 Endocrine, nutritional and metabolic diseases complicating childbirth (principal); E72.12 Methylenetetrahydrofolate reductase deficiency; Z37.0 Single live birth; F17.213 Nicotine dependence, cigarettes, with withdrawal; Z3A.39 39 weeks gestation of pregnancy; O99.324 Drug use complicating childbirth; O72.1 Other immediate postpartum hemorrhage; F12.90 Cannabis use, unspecified, uncomplicated; O99.344 Other mental disorders complicating childbirth; F41.8 Other specified anxiety disorders; O99.334 Smoking (tobacco) complicating childbirth; O69.81X0 Labor and delivery complicated by cord around neck, without compression, not applicable or unspecified; O90.81 Anemia of the puerperium; D64.9 Anemia, unspecified
CPT/HCPCS: 36415; 80307; 85014; 85018; 85025; 86592; 86850; 86900; 86901; 88307; A9270; J2405; J2590; J2795; J7120

== ENCOUNTER 2023-08-02 06:46 | Inpatient (IN) | payer BC, SELFPAY ==
[2023-08-02] VITALS (33 sets, daily range): BP systolic 80–168; BP diastolic 49–117; PULSE 82–148; RESP 13–35; TEMP 36.4–37.7; O2SAT 95–100; BMI 24.0
--- NOTE | ~2023-08-02 | XR_ITS ---
XR abdomen/kub 1V 08/02/2023 17:06 Indication: Nausea with vomiting. Procedure: KUB Comparison: No prior studies for comparison. Findings: Bowel pattern is nonobstructive. No abnormal calcifications. NG tube in the stomach. There is a vascular catheter in the right pelvis. No acute osseous abnormality. Impression: 1: No acute abdominal abnormality. Reviewed, dictated and finalized at location A. FACILITATOR Impression: 1: No acute abdominal abnormality.
[2023-08-02 07:14] LABS: Basophils Absolute Auto 0.1 K/mm3 (0.0-0.1); Basophils Percent Auto 0.9 % (0.2-1.2); Eosinophils Absolute Auto 0.1 K/mm3 (0-0.3); Eosinophils Percent Auto 1.6 % (0-4.4); Hematocrit 38.3 % (37.0-47.0); Hemoglobin 13.1 g/dL (12.0-15.0); Immature Granulocyte Absolute 0.02 K/mm3 (0.00-0.031); Immature Granulocyte Percent A 0.3 % (0-0.5); Lymphocytes Absolute Auto 2.91 K/mm3 (0.9-3.2); Lymphocytes Percent Auto 38.6 % (18.3-44.2); Mean Corpuscular HGB Conc 34.2 g/dl (32-36); Mean Corpuscular Hemoglobin 32.9 pg (26-34); Mean Corpuscular Volume 96.2 fl (80-100); Monocytes Absolute Auto 0.5 K/mm3 (0.1-0.6); Monocytes Percent Auto 6.2 % (2.6-8.5); Neutrophils Percent Auto 52.4 % (45.5-73.1); Platelet Count Result 352 k/mm3 (150-375); Red Blood Count 3.98 M/mm3 (4.2-5.4); Red Cell Distribution Width 11.7 % (11.5-14.5); White Blood Count 7.5 K/mm3 (4.5-10.0)
--- NOTE | 2023-08-02 07:14 | ED.GIBLEED ---
HPI - GI Bleed General Chief complaint: GI Bleed Stated complaint: N/V, abd pain, vomiting blood Time Seen by Provider: 08/02/23 07:12 Source: patient Mode of arrival: ambulatory Limitations: no limitations History of Present Illness HPI Narrative: 37 years old white female came to the emergency room by private car because of vomiting blood started at 1:00 a.m. which is 6 hours prior to arrival associated with blood clots, and nausea. Patient reports of vomiting at least 4 times so far. She denied history of GI bleed. Patient had recent history of dental extraction has been taking ibuprofen 800 mg every 6 hours for the last 5 days. Patient is healthy otherwise does not smoke or drink or use drugs. Patient denies any abdominal pain, diarrhea or black stool Related Data Home Medications Medication Instructions Recorded Confirmed cyanocobalamin (vitamin B-12) 1,000 mcg subcut MONTHLY 06/12/20 07/01/20 1,000 mcg/mL injection solution famotidine 20 mg tablet (Pepcid) 20 mg PO BID 06/12/20 06/12/20 folic acid 1 mg tablet 4 mg PO DAILY 06/12/20 06/12/20 linaclotide 145 mcg capsule 145 mcg PO DAILY 06/12/20 06/12/20 (Linzess) prenat.vits,dennise,rlu-cuun-homuj 1 tablet PO DAILY 06/12/20 06/12/20 Allergies Allergy/AdvReac Type Severity Reaction Status Date / Time Penicillins Allergy Severe Anaphylactic Verified 08/02/23 06:54 Shock Review of Systems Review of Systems: All systems reviewed & are unremarkable except as noted in HPI and below PMFSH Past Medical History Medical History Anemia Depression CHARAN (generalized anxiety disorder) History of macrosomia in infant in prior , currently MTHFR gene mutation Recurrent loss Smoker Surgical History Surgical History (Updated 07/02/20 @ 08:55 by Logan Yoon MD) History of bilateral breast implants 2013 Family History Family History Father Coronary stent patent Mother Coronary stent patent Social History Social History (Updated 06/30/20 @ 07:38 by Logan Yoon MD) Smoking packs per day: 1 Smoking cigarettes per day: 20.0 Years smoked: 12 Smoking pack-years: 12.00 Smoking status: Heavy tobacco smoker Tobacco type: cigarettes Second hand tobacco smoke exposure: Yes Alcohol intake: never Substance use: current Substance use type: marijuana Living arrangements: with family Occupation/Education: unemployed Additional occupation/education comments: 2yr college Gender identity (if verbalized by the patient): Female Sexual Orientation (if Verbalized by the Patient): Straight or Heterosexual Spiritual care concerns: No Agree to blood products: Yes Exam Narrative: General appearance: Well-developed, well-nourished Skin: pale Head: Normocephalic, nontraumatic Eyes: Clear conjunctiva ENT: Oropharynx normal, ears normal, nose normal Neck: Supple, nontender Chest and respiratory: Airway patent, no respiratory distress, no accessory muscle use Heart: Regular rate/rhythm Abdomen: Soft, nontender, no organomegaly, quiet bowel sounds Vascular: Normal peripheral pulses, normal capillary refill. Musculoskeletal: Normal range of motion, nontender back Neurologic: Alert and oriented ?3, [employer] is normal as tested, no gross motor deficit Course Consultations Consultation #1: Dr. Montague Date: 08/02/23 Time: 07:44 Vital Signs Vital signs: Vital Signs Temperature 36.4 C 08/02/23 06:49 Pulse Rate 148 H 08/02/23 06:49 Respiratory Rate 19 08/02/23 06:49 Blood Pressure 122/61 08/02/23 06:49 Pulse Oximetry 98 08/02/23 06:49
[2023-08-02] MEDS: SODIUM CHLORIDE 0.9% IV 1,000 ML 999 ML IV CONT ×2 (07:20→15:20)
[2023-08-02] MEDS: PANTOPRAZOLE SODIUM IV 40 MG VIAL IV PUSH (07:20)
[2023-08-02 07:29] LABS: Alanine Aminotransferase 18 U/L (6-35); Albumin Level 4.2 g/dL (3.5-5.1); Alkaline Phosphatase 45 U/L (38-126); Anion Gap 10 mmol/L (8-16); Aspartate Amino Transferase 22 U/L (14-36); Bilirubin,Total 0.6 mg/dL (0.2-1.3); Blood Urea Nitrogen 28 mg/dL (7-17); Calcium 8.7 mg/dL (8.4-10.2); Carbon Dioxide 24 mmol/L (22-30); Chloride 102 mmol/L (98-107); Estimated CRCL calculation 94 ml/min; Estimated Glomerular Filt Rate > 60; Glucose 132 mg/dL (65-110); Sodium 136 mmol/L (137-145)
[2023-08-02] MEDS: ONDANSETRON INJ 4 MG/2 ML VIAL IV PUSH ×4 (08:44→23:55)
[2023-08-02 08:46] LABS: Hematocrit 31.8 % (37.0-47.0); Hemoglobin 10.6 g/dL (12.0-15.0)
--- NOTE | 2023-08-02 09:52 | ADMGEN ---
This patient, Marilu Gilman, was admitted to Medical Room 240-. Patient/family oriented to hospital policies and general routines including ID bracelet, bed and alarms, visiting hours, pain management, procedures, bathroom and other care routines, personal items, smoking policy, room service/diet, and visiting hours. Information on how to activate the Rapid Response Team has been discussed. Patient/Family are encouraged to report perceived risks to care and to ask questions if they do not understand what they are told or what they should do.
[2023-08-02] MEDS: SODIUM CHLORIDE 0.9% IV 1,000 ML 150 ML IV CONT (10:00)
--- NOTE | 2023-08-02 11:59 | PM.IMHP ---
H&P: HPI History of Present Illness Date/Time: 08/02/23 11:59 Chief Complaint: Patient came to the ER for evaluation after having nausea and vomiting associated with blood clots Narrative: She is a very pleasant 37 years old white female who underwent multiple dental extractions on 07/27/2023 in preparation for dentures placement. She could not tolerate narcotics hence was given ibuprofen as needed for pain which she has been taking on a regular basis. According to the mother, she is not eating much after the surgery and likely taking the the ibuprofen on empty stomach. She started having nausea and vomiting with bleeding associated with blood clots at around 1:00 p.m. She came to the ER for evaluation at around 7:00 a.m., workup was done which confirmed upper GI bleeding. She was dehydrated with heart rate in 140s, which improved with aggressive IV hydration. She is being admitted to the medical floor for close monitoring, GI evaluation for EGD and further workup. Review of Systems Review of Systems: 14 systems were reviewed with pertinent positives and negatives per HPI. Except as documented in the HPI/progress notes, all other systems were reviewed and are negative. All systems reviewed & are unremarkable except as noted in HPI and below PMFSH Past Medical History Medical History Anemia Depression CHARAN (generalized anxiety disorder) History of macrosomia in infant in prior , currently MTHFR gene mutation Recurrent loss Smoker Surgical History Surgical History History of bilateral breast implants 2013 Family History Family History Father Coronary stent patent Mother Coronary stent patent Social History Social History Smoking packs per day: 1 Smoking cigarettes per day: 20.0 Years smoked: 12 Smoking pack-years: 12.00 Smoking status: Heavy tobacco smoker Second hand tobacco smoke exposure: Yes Alcohol intake: never Substance use: current Substance use type: marijuana Do You Feel Safe in your Home?: Yes Lack of Transportation: No Lack of Food: Never True Current Housing: I Have Housing Concerned About Future Housing: No Difficulty Paying Gas/Electric Bills: No Difficulty Paying for Meds: No Currently Unemployed: No Education: Don't Know Difficulty w/ Childcare or Family Care: No Living arrangements: with family Occupation/Education: unemployed Additional occupation/education comments: 2yr college Gender identity (if verbalized by the patient): Female Sexual Orientation (if Verbalized by the Patient): Straight or Heterosexual Spiritual care concerns: No Agree to blood products: Yes Meds Home Medications and Allergies Home Medications Medication Instructions Recorded Confirmed Type ibuprofen 600 mg tablet 600 mg PO Q6H #100 tabs 07/02/20 08/02/23 Rx Allergies Allergy/AdvReac Type Severity Reaction Status Date / Time Penicillins Allergy Severe Anaphylactic Verified 08/02/23 06:54 Shock Vital Signs Vital Signs - 24 hr 08/02/23 06:49 08/02/23 07:00 08/02/23 07:25 Temperature 36.4 C Pulse Rate 148 H 115 H 91 Respiratory Rate 19 16 13 Blood Pressure 122/61 112/86 103/76 Pulse Oximetry 98 98 98 Oxygen Delivery Room Air 08/02/23 07:45 08/02/23 07:54 08/02/23 08:00 Temperature Pulse Rate 99 83 82 Respiratory Rate 16 20 14 Blood Pressure 109/70 Pulse Oximetry 100 99 99 Oxygen Delivery 08/02/23 08:05 08/02/23 10:13 Temperature Pulse Rate 98 Respiratory Rate 17 Blood Pressure 110/70 Pulse Oximetry 100 Oxygen Delivery Room Air Exam Narrative: PHYSICAL EXAMINATION: Vital signs: Please see the chart General physical exam: Patient lying in bed, pleasant and cooperative with the exam, appears to be tired and fati
[2023-08-02] MEDS: DEXTROSE 5%/0.9% SOD CHL 1,000 ML 100 ML IV CONT (12:19)
[2023-08-02] MEDS: traMADol HCL (*CRX) 50 MG TABLET PO (12:19)
--- NOTE | 2023-08-02 13:07 | WPDGICN ---
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 of non-steroidal anti-inflammatories (NSAID) Status: Acute (4) Nausea and vomiting in adult: Code(s): R11.2 - Nausea with vomiting, unspecified Status: Acute Assessment and Plan: egd (5) Orthostasis: Code(s): I95.1 - Orthostatic hypotension Status: Acute Assessment and Plan: fluids transfuse if hgb<7 GI Consult Note Consult date/time: 08/02/23 13:07 Reason for consult: hematemesis HPI: Marilu Gilman is a 37 year old female who has been taking ibuprofen 800mg every 6 hours at least for last week after had dental discomfort, she is here with new onset of emesis with some blots since 1am, also generalized discomfort and lightheaded, she was orthostatic. She was just admitted, on iv fluids, iv protonix. Denies egd or previous gib Review of Systems Constitutional: Constitutional: Reports weakness Eyes: Eyes: Denies blurry vision ENT: Reports Normal hearing present Cardiovascular: Cardiovascular: Denies chest pain Respiratory: Respiratory: Denies cough Gastrointestinal: Gastrointestinal: Reports nausea, Reports vomiting and Reports hematemesis Genitourinary: Genitourinary: Denies hematuria Musculoskeletal: Musculoskeletal: Denies neck pain Integumentary/Breasts: Skin/Breast: Denies rash Neurologic: Denies Abnormal speech present Psychiatric: Psychiatric: Denies confusion [facility] Past Medical History Medical History Anemia Depression CHARAN (generalized anxiety disorder) Hematemesis History of macrosomia in infant in prior , currently MTHFR gene mutation Nausea and vomiting in adult NSAID long-term use Orthostasis Recurrent loss Smoker Surgical History Surgical History History of bilateral breast implants 2013 Family History Family History Father Coronary stent patent Mother Coronary stent patent Social History Social History Smoking packs per day: 1 Smoking cigarettes per day: 20.0 Years smoked: 12 Smoking pack-years: 12.00 Smoking status: Heavy tobacco smoker Second hand tobacco smoke exposure: Yes Alcohol intake: never Substance use: current Substance use type: marijuana Do You Feel Safe in your Home?: Yes Lack of Transportation: No Lack of Food: Never True Current Housing: I Have Housing Concerned About Future Housing: No Difficulty Paying Gas/Electric Bills: No Difficulty Paying for Meds: No Currently Unemployed: No Education: Don't Know Difficulty w/ Childcare or Family Care: No Living arrangements: with family Occupation/Education: unemployed Additional occupation/education comments: 2yr college Gender identity (if verbalized by the patient): Female Sexual Orientation (if Verbalized by the Patient): Straight or Heterosexual Spiritual care concerns: No Agree to blood products: Yes Meds Home Medications and Allergies Home Medications Medication Instructions Recorded Confirmed Type ibuprofen 600 mg tablet 600 mg PO Q6H #100 tabs 07/02/20 08/02/23 Rx Allergies Allergy/AdvReac Type Severity Reaction Status Date / Time Penicillins Allergy Severe Anaph
--- NOTE | 2023-08-02 13:45 | PM.EVENT ---
Event Note Event Note Event Note: Patient started having bloody vomiting and her systolic blood pressure dropped to 80s. GI consulted who advised transfer the patient to the ICU. I spoke with both the supervisor sleeping bag department and the nuclear weapons mechanical specialist. Plan is to transfer the patient to the ICU, monitor closely for hemodynamic stability, transfuse blood/fluid as required by supervisor sleeping bag department. GI recommended erythromycin 150 mg IV x1 dose as well as NG tube and gastric lavage to clear the bleeding site. Kamini Montague plans to take her to the endoscopy suite for an emergent EGD later on today. Further management as per supervisor sleeping bag department/nuclear weapons mechanical specialist in ICU.
[2023-08-02 13:59] LABS: Hematocrit 26.6 % (37.0-47.0); Hemoglobin 8.7 g/dL (12.0-15.0)
--- NOTE | 2023-08-02 14:15 | WPDCNINT ---
Assessment and Plan Assessment and plan (1) Acute upper gastrointestinal bleeding: Code(s): K92.2 - Gastrointestinal hemorrhage, unspecified Status: Acute Assessment and Plan: Patient presented the ED on 08/02 with hematemesis, she had recent dental extraction and was put on ibuprofen 800 mg p.o. q.6 hours. Patient has been taking that regularly for the last 5 days. Presented on 08/02 with multiple episodes of hematemesis. -initially patient was hemodynamically stable with a hemoglobin of 10.0 -on the medical floor patient had large hematemesis of 1500 mL and melena and dropped her hemoglobin to 8.7 and was hypotensive with systolic blood pressures in the 80s and was transferred to the ICU for further management -NG tube was inserted in the ICU, -start patient on Protonix infusion -discussed with Dr. Montague, agree with the plan, will scope patient sometime today -Erythromycin will be given per GI (2) Anemia: Code(s): D64.9 - Anemia, unspecified Status: Acute Assessment and Plan: Patient's hemoglobin dropped to 8.7 will transfuse 2 units of packed RBCs -INR is 1.0 -repeat CBC after the 2 units of packed RBCs -H and H q.6 hours has been ordered (3) Hypotension: Code(s): I95.9 - Hypotension, unspecified Status: Acute Assessment and Plan: Hypotension likely related to anemia, -will give IV fluid bolus and transfuse packed RBCs -right femoral central line was inserted, patient was started on Levophed for blood pressures are low Plan DVT prophylaxis: SCDs Stress ulcer prophylaxis: Protonix infusion Nutrition: NPO Code Status: Full code Critical Care Time Spent: 51 minutes Discussed with patient's mother was a nurse and significant other and updated them with patient's condition and plan of care. They are aware that patient has a GI bleed likely related to ibuprofen, packed RBCs are being transfused, central line was inserted and may require Levophed. I answered all questions Due to a high probability of clinically significant, life threatening deterioration, the patient required my highest level of preparedness to intervene emergently and I personally spent this critical care time directly and personally managing the patient. This critical care time included obtaining a history; examining the patient; pulse oximetry; ordering and review of studies; arranging urgent treatment with development of a management plan; evaluation of patient's response to treatment; frequent reassessment; and discussions with other providers. It was exclusive of separately billable procedures and treating other patients and teaching time. Please see Assessment and Plan section and the rest of the note for further information on patient assessment and treatment This dictation may have been done utilizing a voice recognition system. Attempts have been made to correct errors. However, there may be uncorrected grammatical, spelling, and recognitions errors present. [employer] Consult Note Consult date: 08/02/23 Reason for consult: Hematemesis, GI bleed, anemia, melena HPI: Marilu Gilman is a 37 year old female with past medical history of anemia, depression, and anxiety disorder presented the ED on 08/02/2023 with chief complaint of hematemesis associated blood clots. According the ER reports patient started having hematemesis at 1:00 a.m. on 08/02/2023 and arrived to the ER 6 hours after episode. During that time she reported 4 episodes of hematemesis. Denies any previous history of GI bleed. Patient had recent history of dental extraction and taking ibuprofen 800 mg every 6 hours the last 5 days. According to the records mother of the patient stated that she was eating very little after a dental extraction and was taking ibuprofen and the stomach. Patient received 1 L of IV fluid bolus in the ER, patient was hemodynamically stable and was transferred to medical floor. Around around 1:30 p.m. on
--- NOTE | 2023-08-02 15:10 | WPDPROCEDUR ---
Procedures Central Line Placement Right Femoral: Central Line Date: 08/02/23 Central Line Time: 15:10 Discussed w/ the patient/family/POA,the placement of a central venous catheter, including its clinical necessity/indication & associated potential risks, benifits and alternatives.: Yes The patient/family/POA understand(s) and acknowledge(s) the need to proceed with central venous catheter insertion as an important element of the patient's clinical management.: Yes Consent: I have discussed with the patient and/or surrogate, the non-emergent placement of a central venous catheter, including its clinical necessity/indication and associated potential risks and complications. The patient and/or surrogate understand(s) and acknowledge(s) the need to proceed with central venous catheter insertion as an important element of the patient's clinical management. Time Out Performed: Yes Patient Position: supine Patient placed on monitor/pulse ox: Yes Provider Prep: sterile gown, sterile gloves, Max. sterile barrier precautions, cap and hand hygiene with conventional soap/water or alcohol based hand rub Central line prep: 2% Chlorhexidine scrub Local anesthesia used: lidocaine 1% Amount of anesthesia used (ml): 4 Sterile US Technique with sterile gel/sterile probe covers: Yes Central line lumen inserted: triple Liber[place]: 12 Length (cm): 16 Depth of Insertion (cm): 16 Post Procedure: sutured in place, good blood return, all ports aspirated, flushed, capped, transparent dressing, hemostatic product, antimicrobial product, securement product and aseptic technique maintained throughout procedure Patient tolerated procedure: well Complications: none Additional comments: Patient tolerated the procedure well
[2023-08-02] MEDS: LORazepam INJ (*CRX) 2 MG/ML VIAL (15:21)
[2023-08-02] MEDS: PANTOPRAZOLE SODIUM IV 80 MG in SODIUM CHLORIDE 0.9% IV 500 ML 50 MG IV CONT ×2 (15:21→23:55)
[2023-08-02] MEDS: SODIUM CHLORIDE 0.9% IV 250 ML 30 ML IV CONT (15:21)
[2023-08-02] MEDS: NOREPINEPHRINE 8 MG/D5W 250 ML 8 MG/250 ML BAG 9.38 MG IV CONT (15:22)
[2023-08-02] MEDS: ERYTHROMYCIN LACTOBIONATE INJ 250 MG in SODIUM CHLORIDE 0.9% IV 100 ML 200 MG IVPB (15:50)
--- NOTE | 2023-08-02 17:20 | WPDANESEPP ---
Anes - Eval Pre Procedure Procedure: egd Date/Time: 08/02/23 17:20 Surgeon: crispin Preop Diagnosis: gi bleeding Pre Op Diagnosis: Upper GI Bleed Patient Data Age: 37 Gender: F Height: 1.7 m Weight: 69.6 kg Last Vital Signs Temp 36.9 C 08/02/23 17:07 Pulse 113 H 08/02/23 17:07 Resp 18 08/02/23 17:07 BP 111/86 08/02/23 17:07 Pulse Ox 100 08/02/23 17:07 O2 Del Method Room Air 08/02/23 10:13 Allergies Allergy/AdvReac Type Severity Reaction Status Date / Time Penicillins Allergy Severe Anaphylactic Verified 08/02/23 06:54 Shock Home Medications Medication Instructions Recorded Confirmed Type ibuprofen 600 mg tablet 600 mg PO Q6H #100 tabs 07/02/20 08/02/23 Rx Laboratory Tests 08/02/23 08/02/23 08/02/23 07:07 07:08 08:41 WBC 7.5 K/mm3 (4.5-10.0) RBC 3.98 L M/mm3 (4.2-5.4) Hgb 13.1 D g/dL 10.6 L g/dL (12.0-15.0) (12.0-15.0) Hct 38.3 % 31.8 L % (37.0-47.0) (37.0-47.0) MCV 96.2 fl (80-100) MCH 32.9 pg (26-34) MCHC 34.2 g/dl (32-36) RDW 11.7 % (11.5-14.5) Plt Count 352 k/mm3 (150-375) MPV 10.0 fl (7.4-10.4) Immature Gran % (Auto) 0.3 % (0-0.5) Neut % (Auto) 52.4 % (45.5-73.1) Lymph % (Auto) 38.6 % (18.3-44.2) [place] % (Auto) 6.2 % (2.6-8.5) Eos % (Auto) 1.6 % (0-4.4) Baso % (Auto) 0.9 % (0.2-1.2) Lymph # (Auto) 2.91 K/mm3 (0.9-3.2) [place] # (Auto) 0.5 K/mm3 (0.1-0.6) Eos # (Auto) 0.1 K/mm3 (0-0.3) Baso # (Auto) 0.1 K/mm3 (0.0-0.1) Abs Immat Gran (auto) 0.02 K/mm3 (0.00-0.031) Absolute Neuts (auto) 4.0 K/mm3 (1.3-6.7) Absolute Nucleated RBC 0.0 K/mm3 (0.0-0.012) Nucleated RBC % 0.0 % (0.0-0.2) PT 14.0 Seconds (11.1-14.7) INR 1.0 APTT 25.0 SECONDS (22.3-36.8) Sodium 136 L mmol/L (137-145) Potassium 4.0 mmol/L (3.4-5.0) Chloride 102 mmol/L (98-107) Carbon Dioxide 24 mmol/L (22-30) Anion Gap 10 mmol/L (8-16) BUN 28 H mg/dL (7-17) Creatinine 0.70 mg/dL (0.7-1.0) Estim Creat Clear Calc 94 ml/min Estimated GFR > 60 (59 - ) Glucose 132 H mg/dL (65-110) Calcium 8.7 mg/dL (8.4-10.2) Total Bilirubin 0.6 mg/dL (0.2-1.3) AST 22 U/L (14-36) ALT 18 U/L (6-35) Alkaline Phosphatase 45 U/L (38-126) Total Protein 7.0 g/dL (6.3-8.2) Albumin 4.2 g/dL (3.5-5.1) Blood Type O Positive Antibody Screen Negative Crossmatch See Detail 08/02/23 13:41 WBC RBC Hgb 8.7 L g/dL (12.0-15.0) Hct 26.6 L % (37.0-47.0) MCV MCH MCHC RDW Plt Count MPV Immature Gran % (Auto) Neut % (Auto) Lymph % (Auto) [place] % (Auto) Eos % (Auto) Baso % (Auto) Lymph # (Auto) [place] # (Auto) Eos # (Auto) Baso # (Auto) Abs Immat Gran (auto) Absolute Neuts (auto) Absolute Nucleated RBC Nucleated RBC % PT INR APTT Sodium Potassium Chloride Carbon Dioxide Anion Gap BUN Creatinine Estim Creat Clear Calc Estimated GFR Glucose Calcium Total Bilirubin AST ALT Alkaline Phosphatase Total Protein Albumin Blood Type Antibody Screen Crossmatch Patient hx anesthesia problems: none Family hx anesthesia problems: none Results Review: All pre-operative results and documents have been reviewed as part of the pre-operative evaluation. PMFSH Past Medical History Medical History (Upda
--- NOTE | 2023-08-02 17:22 | PC.NURSE ---
1400-Called to room [address] King and myself at bedside. Decision was made to transfer to ICU. Taken to ICU 7 per bed. Patient and family oriented to policies and call light. Will continue to monitor.
--- NOTE | 2023-08-02 17:51 | WPDANESEPPF ---
Anes - Initial Pre Proc Eval Procedure: Operation Date: 08/02/23 17:35 Proposed Procedures p Esophagogastroduodenoscopy - Lee Broussard MD Date/Time: 08/02/23 17:51 Surgeon: Bright Ortiz MD Pre Op Diagnosis: Upper GI Bleed Patient Data Age: 37 Gender: F Height: 1.7 m Weight: 69.6 kg Last Vital Signs Temp 36.9 C 08/02/23 17:07 Pulse 113 H 08/02/23 17:07 Resp 18 08/02/23 17:07 BP 111/86 08/02/23 17:07 Pulse Ox 100 08/02/23 17:07 O2 Del Method Room Air 08/02/23 10:13 Allergies Allergy/AdvReac Type Severity Reaction Status Date / Time Penicillins Allergy Severe Anaphylactic Verified 08/02/23 06:54 Shock Home Medications Medication Instructions Recorded Confirmed Type ibuprofen 600 mg tablet 600 mg PO Q6H #100 tabs 07/02/20 08/02/23 Rx Laboratory Tests 08/02/23 08/02/23 08/02/23 07:07 07:08 08:41 WBC 7.5 K/mm3 (4.5-10.0) RBC 3.98 L M/mm3 (4.2-5.4) Hgb 13.1 D g/dL 10.6 L g/dL (12.0-15.0) (12.0-15.0) Hct 38.3 % 31.8 L % (37.0-47.0) (37.0-47.0) MCV 96.2 fl (80-100) MCH 32.9 pg (26-34) MCHC 34.2 g/dl (32-36) RDW 11.7 % (11.5-14.5) Plt Count 352 k/mm3 (150-375) MPV 10.0 fl (7.4-10.4) Immature Gran % (Auto) 0.3 % (0-0.5) Neut % (Auto) 52.4 % (45.5-73.1) Lymph % (Auto) 38.6 % (18.3-44.2) [place] % (Auto) 6.2 % (2.6-8.5) Eos % (Auto) 1.6 % (0-4.4) Baso % (Auto) 0.9 % (0.2-1.2) Lymph # (Auto) 2.91 K/mm3 (0.9-3.2) [place] # (Auto) 0.5 K/mm3 (0.1-0.6) Eos # (Auto) 0.1 K/mm3 (0-0.3) Baso # (Auto) 0.1 K/mm3 (0.0-0.1) Abs Immat Gran (auto) 0.02 K/mm3 (0.00-0.031) Absolute Neuts (auto) 4.0 K/mm3 (1.3-6.7) Absolute Nucleated RBC 0.0 K/mm3 (0.0-0.012) Nucleated RBC % 0.0 % (0.0-0.2) PT 14.0 Seconds (11.1-14.7) INR 1.0 APTT 25.0 SECONDS (22.3-36.8) Sodium 136 L mmol/L (137-145) Potassium 4.0 mmol/L (3.4-5.0) Chloride 102 mmol/L (98-107) Carbon Dioxide 24 mmol/L (22-30) Anion Gap 10 mmol/L (8-16) BUN 28 H mg/dL (7-17) Creatinine 0.70 mg/dL (0.7-1.0) Estim Creat Clear Calc 94 ml/min Estimated GFR > 60 (59 - ) Glucose 132 H mg/dL (65-110) Calcium 8.7 mg/dL (8.4-10.2) Total Bilirubin 0.6 mg/dL (0.2-1.3) AST 22 U/L (14-36) ALT 18 U/L (6-35) Alkaline Phosphatase 45 U/L (38-126) Total Protein 7.0 g/dL (6.3-8.2) Albumin 4.2 g/dL (3.5-5.1) Blood Type O Positive Antibody Screen Negative Crossmatch See Detail 08/02/23 13:41 WBC RBC Hgb 8.7 L g/dL (12.0-15.0) Hct 26.6 L % (37.0-47.0) MCV MCH MCHC RDW Plt Count MPV Immature Gran % (Auto) Neut % (Auto) Lymph % (Auto) [place] % (Auto) Eos % (Auto) Baso % (Auto) Lymph # (Auto) [place] # (Auto) Eos # (Auto) Baso # (Auto) Abs Immat Gran (auto) Absolute Neuts (auto) Absolute Nucleated RBC Nucleated RBC % PT INR APTT Sodium Potassium Chloride Carbon Dioxide Anion Gap BUN Creatinine Estim Creat Clear Calc Estimated GFR Glucose Calcium Total Bilirubin AST ALT Alkaline Phosphatase Total Protein Albumin Blood Type Antibody Screen Crossmatch Patient hx anesthesia problems: none Family hx anesthesia problems: none Results Review: All pre-operative results and documents have been reviewe
[2023-08-02] MEDS: EPINEPHrine INJ 1 MG/10 ML SYRINGE (18:13)
[2023-08-02] MEDS: CENTRAL LINE FLUSH 10 ML IV PUSH (21:56)
[2023-08-02] MEDS: LORazepam INJ (*CRX) 2 MG/ML VIAL 0.5 MG IV PUSH (21:56)
[2023-08-02 22:01] LABS: Hematocrit 29.8 % (37.0-47.0); Hemoglobin 10.2 g/dL (12.0-15.0)
[2023-08-02] MEDS: METOCLOPRAMIDE HCL INJ 10 MG/2 ML VIAL 5 MG IV PUSH (23:55)
[2023-08-03] VITALS (13 sets, daily range): BP systolic 98–119; BP diastolic 50–72; PULSE 85–117; RESP 16–24; TEMP 36.2–37.3; O2SAT 96–100
[2023-08-03] MEDS: ONDANSETRON INJ 4 MG/2 ML VIAL IV PUSH ×6 (04:09→23:27)
[2023-08-03 04:26] LABS: Basophils Percent Auto 0.4 % (0.2-1.2); Eosinophils Percent Auto 0.5 % (0-4.4); Hematocrit 27.4 % (37.0-47.0); Hemoglobin 9.4 g/dL (12.0-15.0); Immature Granulocyte Absolute 0.02 K/mm3 (0.00-0.031); Immature Granulocyte Percent A 0.2 % (0-0.5); Lymphocytes Absolute Auto 2.66 K/mm3 (0.9-3.2); Mean Corpuscular HGB Conc 34.3 g/dl (32-36); Mean Corpuscular Hemoglobin 32.3 pg (26-34); Mean Corpuscular Volume 94.2 fl (80-100); Mean Platelet Volume 9.9 fl (7.4-10.4); Monocytes Absolute Auto 0.6 K/mm3 (0.1-0.6); Monocytes Percent Auto 6.7 % (2.6-8.5); Neutrophils Percent Auto 60.2 % (45.5-73.1); Platelet Count Result 183 k/mm3 (150-375); Red Blood Count 2.91 M/mm3 (4.2-5.4); White Blood Count 8.3 K/mm3 (4.5-10.0)
[2023-08-03 04:36] LABS: INR 1.2; Prothrombin Time 15.8 Seconds (11.1-14.7)
[2023-08-03 04:37] LABS: Partial Thromboplastin Time 30.6 SECONDS (22.3-36.8)
[2023-08-03 05:01] LABS: Anion Gap 5 mmol/L (8-16); Blood Urea Nitrogen 21 mg/dL (7-17); Calcium 7.3 mg/dL (8.4-10.2); Carbon Dioxide 22 mmol/L (22-30); Chloride 113 mmol/L (98-107); Estimated CRCL calculation 74 ml/min; Estimated Glomerular Filt Rate > 60; Glucose 95 mg/dL (65-110); Phosphorus 2.4 mg/dL (2.5-4.5); Sodium 140 mmol/L (137-145)
[2023-08-03] MEDS: METOCLOPRAMIDE HCL INJ 10 MG/2 ML VIAL 5 MG IV PUSH ×4 (06:08→23:27)
[2023-08-03] MEDS: CENTRAL LINE FLUSH 10 ML IV PUSH ×3 (06:42→20:33)
[2023-08-03] MEDS: KCL 40 MEQ/WATER 100 ML 100 ML 25 ML IVPB (08:39)
[2023-08-03] MEDS: PANTOPRAZOLE SODIUM IV 40 MG VIAL IV PUSH ×2 (09:48→20:33)
[2023-08-03 10:02] LABS: Hematocrit 25.7 % (37.0-47.0); Hemoglobin 8.6 g/dL (12.0-15.0)
--- NOTE | 2023-08-03 11:08 | WPDINTPN ---
Progress Note: A&P Assessment and Plan (1) Acute upper gastrointestinal bleeding: Code(s): K92.2 - Gastrointestinal hemorrhage, unspecified Status: Acute Assessment and Plan: Patient presented the ED on 08/02 with hematemesis, she had recent dental extraction and was put on ibuprofen 800 mg p.o. q.6 hours. Patient has been taking that regularly for the last 5 days. Presented on 08/02 with multiple episodes of hematemesis. -initially patient was hemodynamically stable with a hemoglobin of 10.0 -on the medical floor patient had large hematemesis of 1500 mL and melena and dropped her hemoglobin to 8.7 and was hypotensive with systolic blood pressures in the 80s and was transferred to the ICU for further management -NG tube was inserted in the ICU, -start patient on Protonix infusion -Erythromycin will be given per GI -08/02: EGD: Single ulcer ranging in size from 10 mm to 15 mm was visualized in the antrum he also had associated bleeding. Status post heater probe, epi different injection, 1 resolution clip to control the bleeding successfully Hemoglobin stable this morning, patient of Levophed, hemodynamically stable, feels much better this morning (2) Anemia: Code(s): D64.9 - Anemia, unspecified Status: Acute Assessment and Plan: Patient's hemoglobin dropped to 8.7 status post 2 units of packed RBCs on 08/02 -INR is 1.0 -H&H remained stable (3) Hypotension: Code(s): I95.9 - Hypotension, unspecified Status: Acute Assessment and Plan: Hypotension likely related to anemia, -will give IV fluid bolus and transfuse packed RBCs -right femoral central line was inserted, patient was started on Levophed for blood pressures are low 08/03: Off Levophed since yesterday after EGD. -hemodynamically stable Plan DVT prophylaxis: SCDs, hold prophylaxis due to GI bleeding Stress ulcer prophylaxis: Will switch Protonix infusion Protonix IV q.12 hours Nutrition: Clear liquid diet Code Status: Full code Critical Care Time Spent: 31 minutes Patient may transfer out of the ICU, if okay with hospitalist Discussed with patient's mother was a nurse and significant other and updated them with patient's condition and plan of care Due to a high probability of clinically significant, life threatening deterioration, the patient required my highest level of preparedness to intervene emergently and I personally spent this critical care time directly and personally managing the patient. This critical care time included obtaining a history; examining the patient; pulse oximetry; ordering and review of studies; arranging urgent treatment with development of a management plan; evaluation of patient's response to treatment; frequent reassessment; and discussions with other providers. It was exclusive of separately billable procedures and treating other patients and teaching time. Please see Assessment and Plan section and the rest of the note for further information on patient assessment and treatment This dictation may have been done utilizing a voice recognition system. Attempts have been made to correct errors. However, there may be uncorrected grammatical, spelling, and recognitions errors present. Subjective Date/time seen: 08/03/23 11:08 Interval history: Reason for consult: Hematemesis, GI bleed, anemia, melena 08/02: EGD: Single ulcer ranging in size from 10 mm to 15 mm was visualized in the antrum he also had associated bleeding. Status post heater probe, epi different injection, 1 resolution clip to control the bleeding successfully 08/03/2023: Patient seen and examined in the ICU, is awake, alert, oriented, denies any nausea, vomiting. States he feels better. Hemodynamically stable, off Levophed. Remains on Protonix infusion this morning. Hemoglobin was 9.4, WBC count of 8.3 and platelets of 183. Potassium is 3.0, creatinine is normal. Patient had good urine output, is afebrile Rev
--- NOTE | 2023-08-03 15:19 | WPDGIPROGNO ---
Progress Note: A&P Assessment and Plan (1) Gastric ulcer due to nonsteroidal antiinflammatory drug (NSAID) therapy: Code(s): K25.9 - Gastric ulcer, unspecified as acute or chronic, without hemorrhage or perforation; T39.395A - Adverse effect of other nonsteroidal anti-inflammatory drugs [NSAID], initial encounter Status: Acute Assessment and Plan: egd yesterday found active bleeding with successful treatment protonix twice daily off levophed with better BP ok to advance diet she knows that should not use more nsaid's consider EGD in 4 months to reassess (2) Hypotension: Code(s): I95.9 - Hypotension, unspecified Status: Acute Assessment and Plan: resolved, from active UGIB (3) Acute blood loss anemia: Code(s): D62 - Acute posthemorrhagic anemia Status: Acute Assessment and Plan: from upper gib monitor for more signs of bleeding yesterday required blood transfusion, fluids and pressors (4) Hematemesis: Code(s): K92.0 - Hematemesis Status: Acute Assessment and Plan: resolved (5) NSAID long-term use: Code(s): Z79.1 - [facility] (current) use of non-steroidal anti-inflammatories (NSAID) Status: Acute (6) Nausea and vomiting in adult: Code(s): R11.2 - Nausea with vomiting, unspecified Status: Acute Assessment and Plan: resolved Subjective Date/time seen: 08/03/23 15:19 Interval history: urgent EGD last evening, found active bleeding from ulcer- treated and controlled with gold probe, epi and clip no more bleeding this morning, she is feeling better she is going to move to regular floor Review of Systems Review of Systems: All systems reviewed & are unremarkable except as noted in HPI and below Exam Const: General: comfortable and no acute distress HENMT: Face/Nose/Sinus: Normal nares present Eyes: General: appearance normal, both eyes and all related structures Neck: Neck: supple Resp: Auscultation: clear to auscultation bilaterally Cardio: Rhythm: regular rhythm Other: mildly tachy GI: Inspection: non-distended GI Palp: Yes Soft to palpation and No Tenderness to palpation present (GI) Auscultation: normal bowel sounds Skin: Other: mild pallor Neuro: Speech: normal speech Motor exam (neuro): 5/5 motor strength present throughout Extrem: General: normal to inspection Psych: Mental Status: mental status grossly normal Objective Data Vital Signs Vital Signs: Vital Signs - 24 hr 08/02/23 15:22 08/02/23 16:04 08/02/23 16:00 Temperature 98.4 F Pulse Rate 133 H 127 H 113 H Respiratory Rate 16 Blood Pressure 81/49 L 108/81 Pulse Oximetry 100 Oxygen Delivery Oxygen Flow Rate 08/02/23 16:00 08/02/23 16:45 08/02/23 16:50 Temperature 98.4 F 98.4 F 98.6 F Pulse Rate 113 H 112 H 107 H Respiratory Rate 18 15 15 Blood Pressure 111/84 101/79 117/86 Pulse Oximetry 100 100 100 Oxygen Delivery Oxygen Flow Rate 08/02/23 17:07 08/02/23 18:01 08/02/23 18:06 Temperature 98.5 F Pulse Rate 113 H 118 H 133 H Respiratory Rate 18 19 20 Blood Pressure 111/86 126/91 H 162/98 H Pulse Oximetry 100 100 100 Oxygen Delivery Bag Valve Mask Bag Valve Mask Oxygen Flow Rate 10 10 08/02/23 18:11 08/02/23 18:00 08/02/23 18:07 Temperature 98.6 F Pulse Rate 133 H 109 H 109 H Respiratory Rate 20 17 Blood Pressure 124/103 H 126/81 Pulse Oximetry 100 100 Oxygen Delivery Bag Valve Mask Oxygen Flow Rate 10 08/02/23 18:49 08/02/23 18:16 08/02/23 18:21 Temperature Pulse Rate 109 H 103 H 120 H Respiratory Rate 17 28 H Blood Pressure 125/109 H 168/117 H 118/88 Pulse Oximetry 100 100 Oxygen Delivery Bag Valve Mask Bag Valve Mask Oxygen Flow Rate 10 10 08/02/23 18:26 08/02/23 18:31 08/02/23 19:19 Temperature 98.8 F Pulse Rate 117 H 122 H 100 Respiratory Rate 35 H 26 H 15 Blood Pressure 122/75 125/88 128/63 Pulse Oximetry 98 98 99 O
[2023-08-03] MEDS: traMADol HCL (*CRX) 50 MG TABLET PO ×2 (16:42→23:26)
--- NOTE | 2023-08-03 19:14 | WPDANESPN ---
Anes - Prog Note Post-Op Date/Time: 08/03/23 19:14 Vital Signs: Last Vital Signs Temp 36.2 C L 08/03/23 17:05 Pulse 88 08/03/23 17:05 Resp 16 08/03/23 17:05 BP 108/54 L 08/03/23 17:05 Pulse Ox 100 08/03/23 17:05 O2 Del Method Room Air 08/03/23 12:00 O2 Flow Rate 2 08/02/23 20:00 Pain Score (VAS): 0 I/O: Intake & Output 08/03/23 08/03/23 08/03/23 07:59 15:59 23:59 Intake Total 240 Output Total 400 275 Balance -400 -275 240 Laboratory Tests 08/03/23 09:54 08/03/23 04:44 08/02/23 08/02/23 08/03/23 07:07 21:55 04:14 WBC 8.3 RBC 2.91 L Hgb 10.2 L 9.4 L Hct 29.8 L 27.4 L MCV 94.2 MCH 32.3 MCHC 34.3 RDW 14.0 Plt Count 183 MPV 9.9 Immature Gran % (Auto) 0.2 Neut % (Auto) 60.2 Lymph % (Auto) 32.0 [place] % (Auto) 6.7 Eos % (Auto) 0.5 Baso % (Auto) 0.4 Lymph # (Auto) 2.66 [place] # (Auto) 0.6 Eos # (Auto) 0.0 Baso # (Auto) 0.0 Abs Immat Gran (auto) 0.02 Absolute Neuts (auto) 5.0 Absolute Nucleated RBC 0.0 Nucleated RBC % 0.0 PT 15.8 H INR 1.2 APTT 30.6 Sodium Potassium Chloride Carbon Dioxide Anion Gap BUN Creatinine Estim Creat Clear Calc Estimated GFR Glucose Calcium Phosphorus Magnesium Crossmatch See Detail 08/03/23 08/03/23 04:44 09:54 WBC RBC Hgb 8.6 L Hct 25.7 L MCV MCH MCHC RDW Plt Count MPV Immature Gran % (Auto) Neut % (Auto) Lymph % (Auto) [place] % (Auto) Eos % (Auto) Baso % (Auto) Lymph # (Auto) [place] # (Auto) Eos # (Auto) Baso # (Auto) Abs Immat Gran (auto) Absolute Neuts (auto) Absolute Nucleated RBC Nucleated RBC % PT INR APTT Sodium 140 Potassium 3.0 L Chloride 113 H Carbon Dioxide 22 Anion Gap 5 L BUN 21 H Creatinine 0.90 Estim Creat Clear Calc 74 Estimated GFR > 60 Glucose 95 Calcium 7.3 L Phosphorus 2.4 L Magnesium 2.0 Crossmatch Patient Feedback: Patient satisfied with anesthetic care.
[2023-08-04] VITALS: PULSE 87
[2023-08-04 03:52] VITALS: BP 118/59; PULSE 94; RESP 17; TEMP 36.6; O2SAT 99
[2023-08-04 04:00] VITALS: PULSE 81
[2023-08-04] MEDS: METOCLOPRAMIDE HCL INJ 10 MG/2 ML VIAL 5 MG IV PUSH (05:04)
[2023-08-04] MEDS: ONDANSETRON INJ 4 MG/2 ML VIAL IV PUSH ×2 (05:04→08:38)
[2023-08-04] MEDS: traMADol HCL (*CRX) 50 MG TABLET PO ×2 (05:04→13:03)
[2023-08-04] MEDS: CENTRAL LINE FLUSH 10 ML IV PUSH (05:05)
[2023-08-04 06:47] LABS: Basophils Absolute Auto 0.1 K/mm3 (0.0-0.1); Basophils Percent Auto 0.9 % (0.2-1.2); Eosinophils Absolute Auto 0.3 K/mm3 (0-0.3); Eosinophils Percent Auto 4.5 % (0-4.4); Hematocrit 25.6 % (37.0-47.0); Hemoglobin 8.7 g/dL (12.0-15.0); Immature Granulocyte Absolute 0.01 K/mm3 (0.00-0.031); Immature Granulocyte Percent A 0.2 % (0-0.5); Lymphocytes Absolute Auto 2.28 K/mm3 (0.9-3.2); Lymphocytes Percent Auto 41.1 % (18.3-44.2); Mean Platelet Volume 9.9 fl (7.4-10.4); Monocytes Absolute Auto 0.4 K/mm3 (0.1-0.6); Monocytes Percent Auto 6.8 % (2.6-8.5); Neutrophils Absolute Auto 2.6 K/mm3 (1.3-6.7); Neutrophils Percent Auto 46.5 % (45.5-73.1); Platelet Count Result 175 k/mm3 (150-375); Red Blood Count 2.64 M/mm3 (4.2-5.4); Red Cell Distribution Width 14.2 % (11.5-14.5); White Blood Count 5.6 K/mm3 (4.5-10.0)
--- NOTE | 2023-08-04 06:53 | WPDGIPROGNO ---
Progress Note: A&P Assessment and Plan (1) Acute blood loss anemia: Code(s): D62 - Acute posthemorrhagic anemia Status: Acute Assessment and Plan: Hemoglobin was 8.6 yesterday. Today's is pending. (2) Gastric ulcer due to nonsteroidal antiinflammatory drug (NSAID) therapy: Code(s): K25.9 - Gastric ulcer, unspecified as acute or chronic, without hemorrhage or perforation; T39.395A - Adverse effect of other nonsteroidal anti-inflammatory drugs [NSAID], initial encounter Status: Acute Assessment and Plan: The ulcer was actively bleeding when endoscopy performed. Dr. Montague successfully stopped the bleeding with injection of epinephrine, heater probe and clips. She understands that she needs to avoid NSAIDs. Follow-up EGD will be done in 6-8 weeks. Would send her home on PPI b.i.d.. Subjective Date/time seen: 08/04/23 06:53 denies abdominal pain or nausea. She has not had any further evidence of bleeding. No bowel movements during the night. She would like to try eating regular food and hopeful of going home today. Exam Const: General: cooperative and healthy appearing Orientation/consciousness: patient oriented x3 HENMT: Head: normal to inspection Ears: hearing grossly normal bilaterally Mouth: Yes Normal oral and palatal mucosa present Eyes: General: appearance normal, both eyes and all related structures Neck: Neck: normal visual inspection Chest: Chest palpation & inspection: normal inspection of the chest Resp: Effort & Inspection: normal respiratory effort Auscultation: clear to auscultation bilaterally Cardio: Rate: regular rate Rhythm: regular rhythm GI: Inspection: normal to inspection GI Palp: Yes No hepatosplenomegaly present Auscultation: normal bowel sounds Skin: General skin exam: normal color and no jaundice Neuro: General: patient oriented x3 Speech: normal speech Objective Data Vital Signs Vital Signs: Vital Signs - 24 hr 08/03/23 08:00 08/03/23 10:00 08/03/23 08:00 Temperature 36.6 C Pulse Rate 92 95 94 Respiratory Rate 19 Blood Pressure 101/72 Pulse Oximetry 98 Oxygen Delivery 08/03/23 10:00 08/03/23 12:05 08/03/23 14:05 Temperature 37.1 C 36.8 C Pulse Rate 95 98 91 Respiratory Rate 19 16 18 Blood Pressure 118/65 110/50 L 101/59 L Pulse Oximetry 100 98 100 Oxygen Delivery 08/03/23 12:00 08/03/23 17:05 08/03/23 16:00 Temperature 36.2 C L Pulse Rate 88 85 Respiratory Rate 16 Blood Pressure 108/54 L Pulse Oximetry 100 Oxygen Delivery Room Air 08/03/23 19:45 08/03/23 20:00 08/03/23 20:00 Temperature 36.6 C Pulse Rate 86 97 86 Respiratory Rate 17 17 Blood Pressure 110/54 L Pulse Oximetry 99 99 Oxygen Delivery Room Air 08/03/23 23:38 08/04/23 00:00 08/04/23 03:52 Temperature 36.8 C 36.6 C Pulse Rate 94 87 94 Respiratory Rate 17 17 Blood Pressure 119/64 118/59 L Pulse Oximetry 99 99 Oxygen Delivery 08/04/23 04:00 Temperature Pulse Rate 81 Respiratory Rate Blood Pressure Pulse Oximetry Oxygen Delivery Intake/Output Intake/Output: Intake & Output 08/01/23 08/02/23 08/03/23 08/04/23 23:59 23:59 23:59 23:59 Intake Total 2192 240 100 Output Total 2230 1175 Balance -38 -935 100 Meds/Results Medications: Active Medications Generic Name Dose Route Start Last Admin Trade Name Freq PRN Reason Stop Dose Admin Al Hydrox/Mg Hydrox/Simethicone 30 ml 08/02/23 12:11 Mag Hydrox/Al Hydrox/Simeth 30 Ml Udc PO QID PRN Dyspepsia Lorazepam 0.5 mg 08/02/23 22:14 Lorazepam Inj (*Crx) 2 Mg/Ml Vial IV PUSH Q4H PRN Anxiety Metoclopramide HCl 5 mg 08/02/23 18:00 08/04/23 05:04 Metoclopramide Hcl Inj 10 Mg/2 Ml Vial IV PUSH 5 mg Q6HR COURTNEY Administration Ondansetron HCl 4 mg 08/02/23 08:10 08/04/23 05:04 Ondansetron Inj 4 Mg/2 Ml Vial IV PUSH 4 mg Q4H COURTNEY Administration Pantoprazole Sodium 40
[2023-08-04 07:05] LABS: Anion Gap 3 mmol/L (8-16); Blood Urea Nitrogen 10 mg/dL (7-17); Calcium 7.6 mg/dL (8.4-10.2); Carbon Dioxide 25 mmol/L (22-30); Chloride 110 mmol/L (98-107); Estimated CRCL calculation 94 ml/min; Estimated Glomerular Filt Rate > 60; Glucose 103 mg/dL (65-110); Potassium 3.4 mmol/L (3.4-5.0); Sodium 138 mmol/L (137-145)
[2023-08-04 08:00] VITALS: BP 97/57; PULSE 79; PULSE 80; RESP 18; TEMP 36.9; O2SAT 100
[2023-08-04] MEDS: PANTOPRAZOLE SODIUM IV 40 MG VIAL IV PUSH (08:38)
[2023-08-04] MEDS: POTASSIUM CHLORIDE 20 MEQ ER TABLET 40 MEQ PO (08:38)
[2023-08-04 14:00] VITALS: BP 116/59; PULSE 81; RESP 18; TEMP 36.8; O2SAT 99
--- NOTE | 2023-08-04 14:38 | PM.DS ---
DS: Admitting Diagnosis Discharge Date 08/04/2023: Admitting Diagnosis Acute upper GI bleeding Anemia DS: Discharge Diagnosis Discharge Diagnosis (1) Acute blood loss anemia: Code(s): D62 - Acute posthemorrhagic anemia Status: Acute (2) Gastric ulcer due to nonsteroidal antiinflammatory drug (NSAID) therapy: Code(s): K25.9 - Gastric ulcer, unspecified as acute or chronic, without hemorrhage or perforation; T39.395A - Adverse effect of other nonsteroidal anti-inflammatory drugs [NSAID], initial encounter Status: Acute (3) Hypotension: Code(s): I95.9 - Hypotension, unspecified Status: Acute (4) Tobacco abuse counseling: Code(s): Z71.6 - Tobacco abuse counseling Status: Acute (5) Nicotine dependence, cigarettes, with other nicotine-induced disorders: Code(s): F17.218 - Nicotine dependence, cigarettes, with other nicotine-induced disorders Status: Acute (6) Anemia: Code(s): D64.9 - Anemia, unspecified Status: Acute (7) Depression: Code(s): F32.9 - Major depressive disorder, single episode, unspecified Status: Acute (8) CHARAN (generalized anxiety disorder): Code(s): F41.1 - Generalized anxiety disorder Status: Acute (9) 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 Workup was done which showed GI bleeding. Hospital Course: H&P: HPI History of Present Illness Date/Time: 08/02/23? 11:59 Chief Complaint: Patient came to the ER for evaluation after having nausea and vomiting associated with blood clots Narrative: She is a very pleasant 37 years old white female who underwent multiple dental extractions on 07/27/2023 in preparation for dentures placement.? She could not tolerate narcotics hence was given ibuprofen as needed for pain which she has been taking on a regular basis.? According to the mother, she is not eating much after the surgery and likely taking the the ibuprofen on empty stomach.? She started having nausea and vomiting with bleeding associated with blood clots at around 1:00 p.m.? She came to the ER for evaluation at around 7:00 a.m., workup was done which confirmed upper GI bleeding.? She was dehydrated with heart rate in 140s, which improved with aggressive IV hydration.? She is being admitted to the medical floor for close monitoring, GI evaluation for EGD and further workup. HOSPITAL COURSE ... Date of Admission - 08/03/2023: (1) Acute upper gastrointestinal bleeding: ?Code(s): K92.2 - Gastrointestinal hemorrhage, unspecified ?Status:?Acute ?Assessment and Plan: Patient presented the ED on 08/02 with hematemesis, she had recent dental extraction and was put on ibuprofen 800 mg p.o. q.6 hours.? Patient has been taking that regularly for the last 5 days.? Presented on 08/02 with multiple episodes of hematemesis. -initially patient was hemodynamically stable with a hemoglobin of 10.0 -on the medical floor patient had large hematemesis of 1500 mL and melena and dropped her hemoglobin to 8.7 and was hypotensive with systolic blood pressures in the 80s and was transferred to the ICU for further management -NG tube was inserted in the ICU, -start patient on Protonix infusion -Erythromycin will be given per GI -08/02:? EGD:? Single ulcer ranging in size from 10 mm to 15 mm was visualized in the antrum he also had associated bleeding.? Status post heater probe, epi different injection, 1 resolution clip to control the bleeding successfully Hemoglobin stable this morning, patient of Levophed, hemodynamically stable, feels much better this morning (2) Anemia: ?Code(s): D64.9 - Anemia, unspecified ?Status:?Acute ?Assessment and Plan: Patient's hemoglobin dropped to 8.7 status post 2 units of packed RBCs on
== END 2023-08-04 17:53 | disposition home or self-care (01) | DRG 378 ==
LOC: ANHED 08:14 → ANH2MED 08:19 → ANHICU 14:11 → ANH2MED 08-03 12:01
PROVIDERS: Internal Medicine; Internal Medicine Gastroenterology; Student in an Organized Health Care Education/Training Program; Admitting Provider Internal Medicine; Emergency Provider Emergency Medicine; Visit Provider Family Medicine
PROC: 0DJ08ZZ Inspection of Upper Intestinal Tract, Via Natural or Artificial Opening Endoscopic (ICD-10-PCS; CPT 43235; principal; 2023-08-02 17:35)
DX: K25.4 Chronic or unspecified gastric ulcer with hemorrhage (principal); D62 Acute posthemorrhagic anemia; E72.12 Methylenetetrahydrofolate reductase deficiency; T39.395A Adverse effect of other nonsteroidal anti-inflammatory drugs [NSAID], initial encounter; F17.210 Nicotine dependence, cigarettes, uncomplicated; E86.0 Dehydration; F32.9 Major depressive disorder, single episode, unspecified; F41.1 Generalized anxiety disorder; I95.1 Orthostatic hypotension; I95.89 Other hypotension; Z98.82 Breast implant status
CPT/HCPCS: 36415; 36430; 74018; 80048; 80053; 81025; 83735; 84100; 85014; 85018; 85025; 85610; 85730; 86850; 86900; 86901; 86923; 96361; 96375; 99285; A9270; C1751; C9113; G0378; J0171; J0330; J1364; J2060; J2371; J2405; J2704; J2765; J3480; J7030; J7040; J7042; J7050; P9016

== ENCOUNTER 2023-12-01 11:05 | Emergency (ER) | payer BC, SELFPAY ==
[2023-12-01 11:16] VITALS: BP 132/88; PULSE 92; RESP 16; TEMP 37; O2SAT 100
--- NOTE | 2023-12-01 12:53 | ED.GENADULT ---
HPI - General Adult General Chief complaint: Skin/Abscess/Foreign Body Stated complaint: Rash on Back,pain Source: patient Mode of arrival: ambulatory Limitations: no limitations History of Present Illness HPI narrative: Patient presents for evaluation of pruritic and painful rash to the right side of her back and chest. She noted symptoms to her back four days ago and symptoms to her chest today. She feels like there is pins and needles in the area. No new lotions, soaps, detergents or topical products. No one else with whom she has been in contact has had similar symptoms. She did have chickenpox in the past. Related Data Home Medications Medication Instructions Recorded Confirmed docusate sodium 100 mg capsule 100 mg PO DAILY 12/01/23 12/01/23 (Stool Softener) ferrous sulfate 325 mg (65 mg 325 mg PO DAILY 12/01/23 12/01/23 iron) tablet (FeroSul) sertraline 50 mg tablet 50 mg PO DAILY 12/01/23 12/01/23 Allergies Allergy/AdvReac Type Severity Reaction Status Date / Time Penicillins Allergy Severe Anaphylactic Verified 12/01/23 11:15 Shock Review of Systems Review of Systems: CONSTITUTIONAL: Denies fever, chills, or sweats. EYES: Denies visual changes, redness, or discharge. ENT: Denies rhinorrhea, congestion, sore throat, or otalgia. CARDIOVASCULAR: Denies chest pain, palpitations, or edema. RESPIRATORY: Denies cough or dyspnea. GASTROINTESTINAL: Denies abdominal pain, nausea, vomiting, or diarrhea. GENITOURINARY: Denies dysuria or hematuria. SKIN: Reports painful and pruritic rash to the right side of her chest and back. MUSCULOSKELETAL: Denies back pain, joint pain, or myalgia. NEUROLOGIC: Denies headache, numbness, dizziness, or weakness. PSYCHIATRIC: Denies anxiety or depression. [facility] Past Medical History Medical History Acute blood loss anemia Anemia Depression CHARAN (generalized anxiety disorder) Gastric ulcer due to nonsteroidal antiinflammatory drug (NSAID) therapy Hematemesis History of macrosomia in infant in prior , currently MTHFR gene mutation Nausea and vomiting in adult Nicotine dependence, cigarettes, with other nicotine-induced disorders NSAID long-term use Orthostasis Recurrent loss Smoker Tobacco abuse counseling Surgical History Surgical History History of bilateral breast implants 2013 Family History Family History Father Coronary stent patent Mother Coronary stent patent Social History Social History Smoking packs per day: 1 Smoking cigarettes per day: 20.0 Years smoked: 12 Smoking pack-years: 12.00 Smoking status: Heavy tobacco smoker Second hand tobacco smoke exposure: Yes Alcohol intake: never Substance use: current Substance use type: marijuana Do You Feel Safe in your Home?: Yes Lack of Transportation: No Lack of Food: Never True Current Housing: I Have Housing Concerned About Future Housing: No Difficulty Paying Gas/Electric Bills: No Difficulty Paying for Meds: No Currently Unemployed: No Education: Don't Know Difficulty w/ Childcare or Family Care: No Living arrangements: with family Occupation/Education: unemployed Additional occupation/education comments: 2yr college Gender identity (if verbalized by the patient): Female Sexual Orientation (if Verbalized by the Patient): Straight or Heterosexual Spiritual care concerns: No Agree to blood products: Yes Exam Narrative: GENERAL: Well-appearing, well-nourished, and in no acute distress. HEAD: Normocephalic, atraumatic. EYES: PERRLA and EOMI. ENT: Nares clear, no rhinorrhea or epistaxis. Mucous membranes moist. Oropharynx without tonsillar hypertrophy exudate or other lesio
== END 2023-12-01 12:57 | disposition home or self-care (01) ==
PROVIDERS: Emergency Provider Nurse Practitioner; PCP Family Medicine
DX: B00.9 Herpesviral infection, unspecified (principal); F17.210 Nicotine dependence, cigarettes, uncomplicated; E72.12 Methylenetetrahydrofolate reductase deficiency; D64.9 Anemia, unspecified; F32.A Depression, unspecified; F41.1 Generalized anxiety disorder
CPT/HCPCS: 87255; 99213; G0463

== ENCOUNTER 2025-05-18 12:25 | Emergency (ER) | payer OTHER, SELFPAY ==
--- NOTE | ~2025-05-18 | XR_ITS ---
EXAMINATION: XR knee RT min 4V, 05/18/2025 12:43 CDT HISTORY: RT knee pain, twisted knee in a hole 1x week ago COMPARISON: No comparisons available. Findings: No acute fracture or malalignment. No significant degenerative changes. Soft tissues unremarkable. Impression: No acute fracture or malalignment. Reviewed, dictated and finalized at location P. Impression: No acute fracture or malalignment.
[2025-05-18 12:40] VITALS: BP 134/85; PULSE 86; RESP 20; TEMP 36.9; O2SAT 100
--- NOTE | 2025-05-18 12:44 | ED.LOWEXIN ---
HPI - Extremity Injury (Lower) General Chief Complaint: Extremity Injury, Lower Stated Complaint: right knee injury Time Seen by Provider: 05/18/25 12:50 Source: patient, RN notes reviewed and old records reviewed Mode of arrival: ambulatory Limitations: no limitations History of Present Illness HPI Narrative: 39 year old female who presents to [facility] with complaints of 1 week ago she was walking and stepped into a hole and twisted her right knee. Patient recently had complete dental extractions preparing for dentures and is presently taking [place] and Clindaycin for that procedure. Patient reports pain to the medial aspect of her right knee with some residual swelling noted and limping gait. Patient does have full mobility of her knee but with discomfort. MD complaint: knee injury Onset (ago): week(s) (1) Type of Injury: other (twisted knee) Place: street/outdoors Severity scale (1-10): 3 Treatments prior to arrival: cold therapy and other (pain medication and Tylenol) Related Data Home Medications ?Medication ?Instructions ?Recorded ?Confirmed ?Last Taken ?Type sertraline 50 mg tablet 50 mg PO DAILY 12/01/23 12/01/23 Unknown History clindamycin HCl 300 mg capsule mg 05/18/25 Unknown History hydrocodone 5 mg-acetaminophen 325 tablet 05/18/25 Unknown History mg tablet Allergies Allergy/AdvReac Type Severity Reaction Status Date / Time Penicillins Allergy Severe Anaphylactic Verified 05/18/25 12:58 Shock ibuprofen AdvReac Mild stomach Verified 05/18/25 12:58 ulcers Review of Systems Review of Systems: CONSTITUTIONAL: Denies fever, chills, or sweats. EYES: Denies visual changes, redness, or discharge. ENT: Denies rhinorrhea, congestion, sore throat, or otalgia. CARDIOVASCULAR: Denies chest pain, palpitations, or edema. RESPIRATORY: Denies cough or dyspnea. GASTROINTESTINAL: Denies abdominal pain, nausea, vomiting, or diarrhea. GENITOURINARY: Denies dysuria or hematuria. SKIN: Denies rash or itching. MUSCULOSKELETAL: Denies back pain,positive for right knee pain and swelling , or myalgia. NEUROLOGIC: Denies headache, numbness, or weakness. PSYCHIATRIC: reports history anxiety or depression. All systems reviewed & are unremarkable except as noted in HPI and below PMFSH Past Medical History Medical History Acute blood loss anemia Gastric ulcer due to nonsteroidal antiinflammatory drug (NSAID) therapy Tobacco abuse counseling Nicotine dependence, cigarettes, with other nicotine-induced disorders Orthostasis Nausea and vomiting in adult NSAID long-term use Hematemesis Anemia Depression History of macrosomia in in prior , currently Smoker CHARAN (generalized anxiety disorder) Recurrent loss MTHFR gene mutation Surgical History Surgical History History of dental surgery extraction of all teeth History of bilateral breast implants 2013 Family History Family History Father Coronary stent patent Mother Coronary stent patent Social History Social History Smoking packs per day: 1 Smoking cigarettes per day: 20.0 Years smoked: 12 Smoking pack-years: 12.00 Smoking status: Heavy tobacco smoker Second hand tobacco smoke exposure: Yes Alcohol intake: never Substance use: current Substance use type: marijuana Do You Feel Safe in your Home?: Yes Lack of Transportation: No Lack of Food: Never True Current Housing: I Have Housing Concerned About Future Housing: No Difficulty Paying Gas/Electric Bills: No Difficulty Paying for Meds: No Currently Unemployed: No Education: Don't Know Difficulty w/ Childcare or Family Care: No Living arrangements: with family Occupation/Education: unemployed Additional occupation/education comments: 2yr college Gender identity (if verbalized by the patient): Female Sexual Orientation (if Verbalized by the Patient): Straight or Heterosexual Spiritual care concerns: No Agree to blood products: Yes Comments At time of signature, agree with nursing past medical, surgical, social and family history. There is no relevant family history pertinent to the presenting complaint Exam Narrative: GENERAL: Well-appearing, well-nourished, and in no acute distress. HEAD: Normocephalic, atraumatic. EYES: PERRLA and EOMI. ENT: Nares clear, no rhinorrhea or epistaxis. Mucous membranes moist.TM's normal throat pink without swelling recent dental surgery to remove teeth edentulous NECK: Supple.no lymphadenopathy CHEST: Clear to auscultation. No respiratory distress.SAO2 100% on room air HEART: Regular rate and rhythm. No murmur heard. Normal peripheral pulses. ABDOMEN: Soft, nontender, nondistended, normal active bowel sounds. EXTREMITIES: Normal range of motion. No edema.Exception noted to right knee with pain to medial aspect of knee and some swelling,, full mobility but with some discomfort, sensation and circulation intact to right leg and foot. SKIN: Warm, dry, no rash. NEURO: No focal deficits. Alert and oriented x3. Course Course Emergency Course: Patient is aware of diagnosis, understands and agrees to treatment plan.? Anticipatory guidance given.? Patient agrees to follow-up as directed and is aware of reasons to seek care at the emergency department. Portions of this record may have been created with voice recognition software Level of Care: Express Care Visit Vital Signs Vital signs: Vital Signs Temperature 36.9 C 05/18/25 12:40 Pulse Rate 86 05/18/25 12:40 Respiratory Rate 20 05/18/25 12:40 Blood Pressure 134/85 05/18/25 12:40 Pulse Oximetry 100 05/18/25 12:40 Oxygen Delivery Room Air 05/18/25 12:40 Temperature 36.9 C 05/18/25 12:40 Pulse Rate 86 05/18/25 12:40 Respiratory Rate 20 05/18/25 12:40 Blood Pressure 134/85 05/18/25 12:40 Pulse Oximetry 100 05/18/25 12:40 Oxygen Delivery Room Air 05/18/25 12:40 Reviewed MDM - Extremity Injury (Lower) Differential Diagnosis Differential diagnosis: Likely acute internal derangement of knee and other (acute strain of right knee, pain right knee) Medical Records Attestation: I reviewed the patient's medical records. Imaging Data Attestation: I personally reviewed and interpreted this imaging study as follows: My impression: no acute fracture or malalignment Radiologist's impression: [facility] [address] [place] [address] XRay Report Signed Patient: Marilu Gilman : 1985 MR#: [id number] Age: 39 Acct:[id number] Loc: [facility] ADM Date: 05/18/[address]: Ordering Physician: Kadi Verma APRN Date of Service: 05/18/25 Procedure(s): XR knee RT min 4V Accession Number(s): [id number] cc: Krystowiak, Laquita Cornelius MD; Kadi Verma APRN~ EXAMINATION: XR knee RT min 4V, 05/18/2025 12:43 CDT HISTORY: RT knee pain, twisted knee in a hole 1x week ago COMPARISON: No comparisons available. Findings: No acute fracture or malalignment. No significant degenerative changes. Soft tissues unremarkable. Impression: No acute fracture or malalignment. Reviewed, dictated and finalized at location P. Please be advised this is a medical document. It is intended for [id number] communication. It is written in medical language and may contain unfamiliar abbreviations or verbiage. Medical documents are intended to carry relevant information, facts as evident, and the clinical opinion of the practitioner at the time of the encounter. This report may have been done utilizing a voice recognition system. Attempts have been made to correct errors. However, there may be uncorrected grammatical, spelling, and recognition errors present. The file time of this note does not necessarily represent the time of service. Dictated By: Sajan Pritchett MD 05/18/25 1304 Signed By: <Electronically signed by Sajan Pritchett MD in OV> 05/18/25 1311 Critical Care Time Critical Care Time Critical Care Time: No Discharge Plan Discharge Clinical Impression: Right medial knee pain Patient Disposition: Home Condition: Stable Instructions: Antibiotic Form, Knee Pain (ED) Additional Instructions: Elastic wrap or orthopedic splint such as Neoprene as directed for comfort for the next 5-7 days May use topical ointment such as Bengay with Lidocaine or Voltaren ointment to knee Tylenol for pain Follow-up with orthopedic surgeon if no improvement Follow-up with PCP if further problems or concerns Ice to the area 20-30 minutes 4-6 times a day Elevate above heart If your symptoms persist, change or worsen significantly before you can contact your personal physician then please, without delay, go to the emergency department for further evaluation. Follow-up with PCP in 7-10 days or sooner if needed Follow up with PCP soon in regards to your blood pressure which is elevated above threshold for referral. Blood pressure above 120/80 may indicate pre-hypertension. 134/85 Patient Language: Azeri Prescriptions: No Action sertraline 50 mg tablet 50 mg PO DAILY hydrocodone-acetaminophen 5-325 mg tablet clindamycin HCl 300 mg capsule pantoprazole [Protonix] 40 mg tablet,delayed release (DR/EC) 40 mg PO BID Qty: 60 0RF Follow-up/Referrals: Diomedes,Laquita Cornelius MD [Primary Care Provider, Unknown] Time of Disposition: 13:24 Quality [place] Coma Scale Eyes: Open Verbal: Oriented and Alert Motor: Follows Commands [place] Coma Total Score: 15
== END 2025-05-18 13:29 | disposition home or self-care (01) ==
PROVIDERS: Emergency Provider Registered Nurse; PCP Student in an Organized Health Care Education/Training Program
DX: M25.561 Pain in right knee (principal); F17.210 Nicotine dependence, cigarettes, uncomplicated; F32.A Depression, unspecified; F41.1 Generalized anxiety disorder; E72.12 Methylenetetrahydrofolate reductase deficiency
CPT/HCPCS: 73564; 99213; G0463